=== PATIENT | female | born 1940 | race Caucasian/White ===

== ENCOUNTER 2017-02-23 15:00 | Inpatient (IN) ==
[2017-02-23 15:20] LABS: Basophils % 0.2 %; Eosinophils # 0.1 K/mcL (0.0-0.6); Eosinophils % 0.5 %; Hematocrit 40.4 % (35.3-44.9); Immature Granulocytes % 0.4 % (0-4); Lymphocytes # 2.1 K/mcL (0.6-4.6); Lymphocytes % 21.6 %; Mean Corpuscular HGB Conc 34.7 g/dL (31.6-35.5); Mean Corpuscular Hemoglobin 28.6 pg (28.0-33.3); Mean Corpuscular Volume 82.6 fL (83.0-100.0); Monocytes # 0.7 K/mcL (0.0-1.3); Neutrophils # 6.8 K/mcL (1.6-8.9); Platelet Count 229 K/mcL (140-400); Red Blood Count 4.89 M/mcL (3.82-4.97); Red Cell Distribution Width 12.6 % (11.5-14.5); Segmented Neutrophils % 70.3 %
[2017-02-23] MEDS ORDERED: 0.9 % Sodium Chloride 1,000 ML IVC ONE (15:20)
[2017-02-23 15:33] LABS: Prothrombin Time 10.8 Seconds (9.4-12.1)
[2017-02-23 15:36] LABS: Activated Partial Thrombo Time 25.5 Seconds (26.0-36.0)
[2017-02-23 15:41] LABS: Calcium 10.6 mg/dL (8.6-10.8)
--- NOTE | 2017-02-23 15:51 | Emergency Department Note ---
Disposition Clinical Impression: Neurological deficit present, Hypokalemia, Atrial fibrillation with rapid ventricular response, Acute on chronic renal insufficiency Disposition: Admitted As Inpatient Condition: Critical Referrals: Delifna Middleton CNP [Primary Care Provider] - Forms: ED Satisfaction Letter Time of Disposition: 17:54 Neuro HPI - General Chief Complaint: ED Neuro Symptoms/Deficit Stated Complaint: neuro Time Seen by Provider: 02/23/17 15:12 Source: family Mode of arrival: other (Driven by her brother) Limitations: no limitations Nursing Notes Reviewed: Yes Vital Signs Reviewed: Yes - History of Present Illness HPI Narrative: Mrs. Javed, a 76yo female, since from home by POV for concern of neuro deficit. Specifically, slurring of speech, unilateral facial drooping. Last known normal is 5 days ago per the patient. History is somewhat convoluted, however, my understanding is the patient has been falling for the past 6 weeks. 5 days ago, patient's son picked her up to stay with him for several days because of her falling. Her symptoms were present at that time. They have not progressed or worsened. She has been trying to call her family practice physician and is been unsuccessful getting an appointment. PMH: Hypertension, hyperlipidemia, insulin dependent diabetes. No history of atrial fibrillation. ROS: Positive: Sort of speech, facial symmetry and excellent negative for fever, chills, nausea, vomiting, chest pain, palpitations, dyspnea, diaphoresis, abdominal pain - Related Data Home Medications: Home Medications Medication Instructions Recorded Confirmed Citalopram [CeleXA] 10 mg PO DAILY 12/10/16 02/23/17 Ergocalciferol (VITAMIN D2) 50,000 unit PO SA 12/10/16 02/23/17 [Vitamin D2] Esomeprazole Magnesium [Nexium] 40 mg PO BID PRN 12/10/16 02/23/17 Insulin ASPART [NovoLOG] 0 unit SQ TID 12/10/16 02/23/17 Insulin DETEMIR [Levemir] 40 unit SQ BID 12/10/16 02/23/17 Linagliptin [Tradjenta] 5 mg PO DAILY 12/10/16 02/23/17 Metoprolol [Lopressor] 25 mg PO BID 12/10/16 02/23/17 Acetaminophen [Tylenol Arthritis] 650 mg PO Q8H 02/23/17 02/23/17 Azithromycin [Azithromycin 6-Tab 250 mg PO PER PKG DI 02/23/17 02/23/17 Pack] Chlorpheniramine/Phenyleph/Dm 10 ml PO Q4H PRN 02/23/17 02/23/17 [Gencontuss Liquid] Lisinopril [Zestril] 5 mg PO DAILY 02/23/17 02/23/17 Allergies/Adverse Reactions: Allergies Allergy/AdvReac Type Severity Reaction Status Date / Time acetaminophen Allergy Rash Verified 02/23/17 15:09 [From Darvocet-N] penicillin V Allergy Rash Verified 02/23/17 15:09 propoxyphene Allergy Rash Verified 02/23/17 15:09 [From Darvocet-N] Tetanus Vaccines and Toxoid Allergy See Verified 02/23/17 15:09 Comments tramadol [From Ultram] Allergy Rash Verified 02/23/17 15:09 Past Medical History - Past Medical History Medical history: Reports: diabetes, hyperlipidemia, hypertension, renal disease , other Surgical history: Reports: cholecystectomy Psychiatric history: Reports: no psych history - Social History Smoking Status: Never smoker Alcohol use: Reports: none Drug use: Reports: none Physical Exam Vital Signs Reviewed General: Patient is alert, oriented, and in no acute distress. HEENT: Facial asymmetry. Head is normocephalic and atraumatic. PERRLA, EOMI. mucosa moist. Trachea midline. Cardiovascular: Heart heart rate and irregular rhythm without clicks, rubs, gallops, or murmurs. No JVD. PMI nondisplaced. Pedal edema. Bilateral radial posterior tibial pulses equal and 2/4. Respiratory: Symmetric chest rise with good respiratory effort. Bilateral breath sounds are clear without wheezing, crackles, or rhonchi. Abdomen: Bowel sounds present normoactive x-4 quadrants. Abdomen is soft, nondistended, and nontender. No organomegaly noted. Musculoskeletal: Muscle strength 5/5 and symmetric in right upper and lower extremities. Muscle strength 4/5 and symmetric in left upper and lower extremity. Neuro: Cranial nerves II through XII with deficit - drooping on left side of upper and lower face with no upper or lower left-sided motor movement; sensation intact. Left eyelid ptosis.. Sensation light touch intact. No pronator drift. No limb ataxia. No limb drift in upper or lower extremities. Psych: Patient's affect is appropriate for situation. - General General appearance: alert Course Course Narrative: Patient presents with obvious neuro deficit of left-sided facial swelling and slurring of speech. Last known normal is 4-5 days ago that she is well as I do wonder for TPA. Will not call a code stroke at this time. I assisted in transferring the patient from wheelchair to bed and she has some truncal ataxia , drifting to her left side which is the affected side. Face had gross asymmetry with slurring of speech as described on an HSS and physical exam. She is answering all questions appropriately and rapidly; mentation appears to be clear and crisp. She has no difficulty finding her words but does have difficulty enunciating them. Patient has no history of atrial ablation however she is in A. fib with RVR on presentation. Begin Cardizem bolus and Cardizem drip which lowered her rate to 93. CT head was concerning for possible lacunar infarct; no acute hemorrhage seen. We will hold off on anticoagulation at this time because of that finding. When I spoke with the admitting hospitalist, recommended MR prior to anticoagulation. Patient also has hypokalemia. Cannot perform dysphasia screen in the emergency department because of her facial asymmetry thus cannot replenish by mouth; replenish with slow IV drip. Vital Signs Temperature 0 F L 02/23/17 15:03 Pulse Rate 92 02/23/17 15:03 Respiratory Rate 14 02/23/17 15:03 Blood Pressure 145/79 02/23/17 15:03 O2 Sat by Pulse Oximetry 92 02/23/17 15:03 Temperature 0 F L 02/23/17 15:03 Pulse Rate 72 02/23/17 16:05 Respiratory Rate 18 02/23/17 16:05 Blood Pressure 131/65 02/23/17 16:05 O2 Sat by Pulse Oximetry 95 02/23/17 16:05 Oxygen Delivery Oxygen Delivery Nasal Cannula Neuro Symptoms/Deficit - Medical Records Medical records reviewed: Yes I reviewed the patient's medical records. - Lab Data Lab results reviewed: Yes I reviewed the patient's lab results. Result diagrams: 02/23/17 15:06 02/23/17 15:06 Lab Results 02/23/17 02/23/17 02/23/17 Range/Units 15:06 15:06 15:06 WBC 9.6 (4.3-11.1) K/mcL RBC 4.89 (3.82-4.97) M/mcL Hgb 14.0 (11.5-15.4) g/dL Hct 40.4 (35.3-44.9) % MCV 82.6 L (83.0-100.0) fL MCH 28.6 (28.0-33.3) pg MCHC 34.7 (31.6-35.5) g/dL RDW 12.6 (11.5-14.5) % Plt Count 229 (140-400) K/mcL MPV 9.0 L (9.4-12.4) fL Immature Gran % 0.4 (0-4) % Seg Neutrophils % 70.3 % Lymphocytes % 21.6 % Monocytes % 7.0 % Eosinophils % 0.5 % Basophils % 0.2 % Neutrophils # 6.8 (1.6-8.9) K/mcL Lymphocytes # 2.1 (0.6-4.6) K/mcL Monocytes # 0.7 (0.0-1.3) K/mcL Eosinophils # 0.1 (0.0-0.6) K/mcL Basophils # 0.0 (0.0-0.2) K/mcL PT 10.8 (9.4-12.1) Seconds INR 1.0 APTT 25.5 L (26.0-36.0) Seconds Sodium 131 L (136-145) mEq/L Potassium 3.0 L (3.5-4.5) mEq/L Chloride 89 L (98-109) mEq/L Carbon Dioxide 32 H (19-29) mEq/L BUN 41 H (7-20) mg/dL Creatinine 1.68 H (0.57-1.11) mg/dL Est GFR ( Amer) 36 L (> 60) Est GFR (Non-Af Amer) 30 L (> 60) BUN/Creatinine Ratio 24 (6-26) Glucose 100 H (70-99) mg/dL POC Glucose (58-89) Calculated Osmolality 282 (280-300) Calcium 10.6 (8.6-10.8) mg/dL Magnesium 1.9 (1.6-2.6) mg/dL Total Bilirubin (0.2-1.2) mg/dL Direct Bilirubin (0.0-0.5) mg/dL Indirect Bilirubin (0.0-1.2) mg/dL AST (5-34) Units/L ALT (0-55) Units/L Alkaline Phosphatase (38-126) Units/L Creatine Kinase (29-168) Units/L Troponin I (0-0.03) ng/mL Serum Total Protein (6.0-8.3) g/dL Albumin (3.5-5.0) g/dL Globulin (2.4-3.5) g/dL Albumin/Globulin Ratio (1.1-2.2) Urine Color (Yellow) Urine Clarity (Clear) Urine pH (5.0-8.0) pH Units Ur Specific [place] (1.010-1.025) Urine Protein (Neg-Trace) mg/dL Urine Glucose (UA) (Normal) mg/dL Urine Ketones (Negative) mg/dL Urine Blood (Negative) Urine Nitrite (Negative) Urine Bilirubin (Negative) Urine Urobilinogen (Normal) mg/dL Ur Leukocyte Esterase (Negative) Urine Microscopic RBC (0-3) per hpf Urine Microscopic WBC (0-3) per hpf Ur Squamous Epith Cells (None-Few) per lpf Urine Bacteria (None-Few) per hpf Hyaline Casts (None-Few) per lpf Ur Culture Indicated? (NO) Ethyl Alcohol (0-10) mg/dL Blood Type Antibody Screen 02/23/17 02/23/17 02/23/17 Range/Units 15:06 15:06 15:06 WBC (4.3-11.1) K/mcL RBC (3.82-4.97) M/mcL Hgb (11.5-15.4) g/dL Hct (35.3-44.9) % MCV (83.0-100.0) fL MCH (28.0-33.3) pg MCHC (31.6-35.5) g/dL RDW (11.5-14.5) % Plt Count (140-400) K/mcL MPV (9.4-12.4) fL Immature Gran % (0-4) % Seg Neutrophils % % Lymphocytes % % Monocytes % % Eosinophils % % Basophils % % Neutrophils # (1.6-8.9) K/mcL Lymphocytes # (0.6-4.6) K/mcL Monocytes # (0.0-1.3) K/mcL Eosinophils # (0.0-0.6) K/mcL Basophils # (0.0-0.2) K/mcL PT (9.4-12.1) Seconds INR APTT (26.0-36.0) Seconds Sodium (136-145) mEq/L Potassium (3.5-4.5) mEq/L Chloride (98-109) mEq/L Carbon Dioxide (19-29) mEq/L BUN (7-20) mg/dL Creatinine (0.57-1.11) mg/dL Est GFR ( Amer) (> 60) Est GFR (Non-Af Amer) (> 60) BUN/Creatinine Ratio (6-26) Glucose (70-99) mg/dL POC Glucose 113 H (58-89) Calculated Osmolality (280-300) Calcium (8.6-10.8) mg/dL Magnesium (1.6-2.6) mg/dL Total Bilirubin (0.2-1.2) mg/dL Direct Bilirubin (0.0-0.5) mg/dL Indirect Bilirubin (0.0-1.2) mg/dL AST (5-34) Units/L ALT (0-55) Units/L Alkaline Phosphatase (38-126) Units/L Creatine Kinase (29-168) Units/L Troponin I 0.01 (0-0.03) ng/mL Serum Total Protein (6.0-8.3) g/dL Albumin (3.5-5.0) g/dL Globulin (2.4-3.5) g/dL Albumin/Globulin Ratio (1.1-2.2) Urine Color (Yellow) Urine Clarity (Clear) Urine pH (5.0-8.0) pH Units Ur Specific [place] (1.010-1.025) Urine Protein (Neg-Trace) mg/dL Urine Glucose (UA) (Normal) mg/dL Urine Ketones (Negative) mg/dL Urine Blood (Negative) Urine Nitrite (Negative) Urine Bilirubin (Negative) Urine Urobilinogen (Normal) mg/dL Ur Leukocyte Esterase (Negative) Urine Microscopic RBC (0-3) per hpf Urine Microscopic WBC (0-3) per hpf Ur Squamous Epith Cells (None-Few) per lpf Urine Bacteria (None-Few) per hpf Hyaline Casts (None-Few) per lpf Ur Culture Indicated? (NO) Ethyl Alcohol (0-10) mg/dL Blood Type A POSITIVE Antibody Screen NEGATIVE 02/23/17 02/23/17 02/23/17 Range/Units 15:33 15:33 16:40 WBC (4.3-11.1) K/mcL RBC (3.82-4.97) M/mcL Hgb (11.5-15.4) g/dL Hct (35.3-44.9) % MCV (83.0-100.0) fL MCH (28.0-33.3) pg MCHC (31.6-35.5) g/dL RDW (11.5-14.5) % Plt Count (140-400) K/mcL MPV (9.4-12.4) fL Immature Gran % (0-4) % Seg Neutrophils % % Lymphocytes % % Monocytes % % Eosinophils % % Basophils % % Neutrophils # (1.6-8.9) K/mcL Lymphocytes # (0.6-4.6) K/mcL Monocytes # (0.0-1.3) K/mcL Eosinophils # (0.0-0.6) K/mcL Basophils # (0.0-0.2) K/mcL PT (9.4-12.1) Seconds INR APTT (26.0-36.0) Seconds Sodium (136-145) mEq/L Potassium (3.5-4.5) mEq/L Chloride (98-109) mEq/L Carbon Dioxide (19-29) mEq/L BUN (7-20) mg/dL Creatinine (0.57-1.11) mg/dL Est GFR ( Amer) (> 60) Est GFR (Non-Af Amer) (> 60) BUN/Creatinine Ratio (6-26) Glucose (70-99) mg/dL POC Glucose (58-89) Calculated Osmolality (280-300) Calcium (8.6-10.8) mg/dL Magnesium (1.6-2.6) mg/dL Total Bilirubin 0.4 (0.2-1.2) mg/dL Direct Bilirubin 0.2 (0.0-0.5) mg/dL Indirect Bilirubin 0.2 (0.0-1.2) mg/dL AST 22 (5-34) Units/L ALT 32 (0-55) Units/L Alkaline Phosphatase 61 (38-126) Units/L Creatine Kinase 28 L (29-168) Units/L Troponin I (0-0.03) ng/mL Serum Total Protein 7.5 (6.0-8.3) g/dL Albumin 3.5 (3.5-5.0) g/dL Globulin 4.0 H (2.4-3.5) g/dL Albumin/Globulin Ratio 0.9 L (1.1-2.2) Urine Color Yellow (Yellow) Urine Clarity Clear (Clear) Urine pH 5.5 (5.0-8.0) pH Units Ur Specific [place] 1.028 H (1.010-1.025) Urine Protein >=300 H (Neg-Trace) mg/dL Urine Glucose (UA) Normal (Normal) mg/dL Urine Ketones Negative (Negative) mg/dL Urine Blood Negative (Negative) Urine Nitrite Negative (Negative) Urine Bilirubin Small H (Negative) Urine Urobilinogen Normal (Normal) mg/dL Ur Leukocyte Esterase Negative (Negative) Urine Microscopic RBC 3-5 H (0-3) per hpf Urine Microscopic WBC 3-5 H (0-3) per hpf Ur Squamous Epith Cells Few (None-Few) per lpf Urine Bacteria Moderate H (None-Few) per hpf Hyaline Casts None Seen (None-Few) per lpf Ur Culture Indicated? NO (NO) Ethyl Alcohol < 10 (0-10) mg/dL Blood Type Antibody Screen - Radiology Data Radiology results reviewed: Yes I reviewed the patient's radiology results. - EKG Data EKG attestation: Yes I reviewed and interpreted this EKG. EKG results narrative: EKG dated 23 February 2017 at 15:10 to read as atrial fibrillation with rapid ventricular response; rate of 124. Left axis. LVH. Compared to previous dated 05/12/2011 also showing left axis however sinus rhythm; atrophic relation with RVR is new. EKG #2 dated 23 February 2017 at 16:28 shows atrial fib ablation with a rate of 93. Patient is no longer rapid ventricular response. Left axis deviation and LVH remain from previous EKG today. NIH Stroke Scale - Level of Consciousness LOC: Alert - LOC Questions LOC Questions: Answers both correctly - LOC Commands LOC Commands: Performs both correctly - Best Gaze Best Gaze: Normal - Visual Visual: No visual loss - Facial Palsy Facial Palsy: Complete absence of movement in upper and lower face - Motor Arms Motor Arm-Left: No drift for 10 seconds Motor Arm-Right: No drift for 10 seconds - Motor Legs Motor Leg-Left: No drift for 5 seconds Motor Leg-Right: No drift for 5 seconds - Limb Ataxia Limb Ataxia: Absent of affected limb too weak to perform exam - Sensory Sensory: Mild to moderate loss, "not as sharp" - Best Language Best Language: Mild to moderate aphasia. Examiner can identify picture from response - Dysarthria Dysarthria: Mild, slurs some words - Extinction and Inattention Extinction and Inattention: Normal - NIHSS Total Score NIHSS Total Score: 6 - Pupil Exam Bilateral Pupil Reaction: Brisk, Reactive Pupil Size: 3 TPA Checklist - Source Information Source: Family - Eligibilty for IV tPA 1. LKW equal to or less than 4.5 hours be before treatment: No Critical Care Time Critical Care Time: Yes Total Critical Care Time: 60 Attestation: The high probability of a clinically significant, sudden or life threatening deterioration of the [neuro/CV] system(s) required my full and direct attention , intervention and personal management. The aggregate critical care time was [60 ] minutes. This time is in addition to time spent performing reported procedures but includes the following: [x] Data Review and interpretation [x] Patient assessment and monitoring of vital signs [x] Documentation [x] Medication orders and management Attestation Statement - Attestation Attestation: I examined this patient and my medical decision-making was reviewed with the Resident Physician, Dr. Kamara. I agree with the documented findings, disposition and treatment plan as described except to the extent set forth below. Patient is a 76-year-old white female who is brought to the emergency room today by her brother for slurred speech left sided facial droop and difficulty forming words which patient reports first began approximately 4-5 days ago. The brother who brought her here by vehicle states he has not seen her until she called him today with these changes. Patient resides currently with another family member who has been recently out of town for the past 48 hours. Patient reports possibly 4 days ago she became lightheaded and had fallen in the home and was unable to get up on her own. Patient was assisted by a sister- in-law. Patient reports that she contacted her doctor who recommended she come to the emergency department and she did not call to be transported here until today. Patient denies any headache does complain of some blurred vision, no chest pain or pressure or heaviness, no shortness of breath, no abdominal pain or flank pain, no nausea vomiting or diaphoresis. Patient's states that her left face feels weak and she is having trouble finding the words she wants to say although is able to answer questions appropriately just takes her a long period of time. Patient with some slurred speech. In atrial fibrillation with RVR and a stable blood pressure on arrival. patient arrives tachycardic. EKG shows atrial fibrillation with RVR. Patient has no prior history is far as we are aware. Patient was paced property assessment monitor with continuous pulse ox. Oxygen was applied IV saline well was established and patient was evaluated on arrival to the bedside due to strokelike symptoms. Patient with a 4-5 day reported onset which her brother confirmed on arrival. Due to the length of time of symptoms patient is not a candidate for TPA and a stroke alert was not called. I agree with patient's physical exam findings as documented. Patient was started on Cardizem drip and bolus for rate control of her atrial fibrillation. This did work well to control her rate although she remains in atrial fibrillation at this time. Patient went for a noncontrast head CT which shows an old lacunar infarct but no acute hemorrhage or infarct is appreciated by radiology. Patient's chest x-ray is also unremarkable. Laboratory evaluation shows a mild hypokalemia, IV potassium replacement was initiated in the ED. Patient is hemodynamically stable on Cardizem drip at this time and currently rate controlled. We will hold off on any anticoagulation immediately as I feel patient will require further neurologic evaluation including MR before into quite patient is initiated. Patient will need consults by both neurology as well as cardiology and case was discussed with the hospitalist who accepted patient for admission. Patient will be admitted for further evaluation of neurologic deficit concerning for stroke, atrial fibrillation with RVR, and hypokalemia.
[2017-02-23 16:01] LABS: Albumin 3.5 g/dL (3.5-5.0); Albumin/Globulin Ratio 0.9 (1.1-2.2); Bilirubin,Direct 0.2 mg/dL (0.0-0.5); Bilirubin,Indirect 0.2 mg/dL (0.0-1.2); Bilirubin,Total 0.4 mg/dL (0.2-1.2); Total Protein 7.5 g/dL (6.0-8.3)
[2017-02-23 16:02] LABS: Creatine Kinase 28 Units/L (29-168)
[2017-02-23 16:05] LABS: Ethanol < 10 mg/dL (0-10)
[2017-02-23] MEDS ORDERED: Potassium Effervescent 25 MEQ TABLET.EFF PO ONE (16:05)
[2017-02-23 16:15] LABS: Magnesium 1.9 mg/dL (1.6-2.6)
[2017-02-23] MEDS ORDERED: SODIUM CHLORIDE 0.9% IVPB ONE (16:43)
[2017-02-23] MEDS ORDERED: POTASSIUM PHOSPHATE IVPB ONE (16:43)
[2017-02-23] MEDS ORDERED: Potassium Phosphate 44 MEQ in 0.9 % Sodium Chloride 250 ML IVPB ONE (16:47)
[2017-02-23 16:52] LABS: Bilirubin,Urine Small (Negative); Blood,Urine Negative (Negative); Clarity,Urine Clear (Clear); Color,Urine Yellow (Yellow); Glucose,Urine (UA) Normal (Normal); Ketones,Urine Negative (Negative); Leukocyte Esterase,Urine Negative (Negative); Nitrite,Urine Negative (Negative); PH,Urine 5.5 pH Units (5.0-8.0); Protein,Urine >=300 mg/dL (Neg-Trace); Specific Gravity,Urine 1.028 (1.010-1.025); Urobilinogen,Urine Normal (Normal)
[2017-02-23 17:27] LABS: Bacteria,Urine Moderate per hpf (None-Few); Hyaline Casts,Urine None Seen per lpf (None-Few); Squamous Epithelial Cell,Urine Few per lpf (None-Few)
[2017-02-23] MEDS ORDERED: Naloxone 0.4 MG/ML INJ IVP PRN ×2 (19:54→20:04)
[2017-02-23] MEDS ORDERED: Acetaminophen 325 MG TABLET PO SCH (20:00)
[2017-02-23] MEDS ORDERED: Dextrose Gel 15 GM PO PRN ×2 (20:05)
[2017-02-23] MEDS ORDERED: *HR* Dextrose 50 % in Water (Syg) 50 ML SYRINGE IVP PRN (20:05)
[2017-02-23] MEDS ORDERED: D5% in Water 1,000 ML IVC PRN (20:05)
[2017-02-23] MEDS ORDERED: Insulin LISPRO 300 UNITS/3 ML VIAL SQ SCH (21:00)
[2017-02-23 21:11] LABS: Chol/HDL Ratio 8.3 (0-4.9)
--- NOTE | 2017-02-23 21:23 | Internal Med History&Physical ---
<Ronnie Lujan J - Last Filed: 02/23/17 23:39> Date of Encounter: 02/23/17 Time of Encounter: 21:18 Assessment and Plan (1) CVA (cerebral vascular accident) Current visit: Yes Status: Acute Patient presents to [facility] with left-sided facial droop, slurred speech, left upper and lower extremity weakness and fatigue. CT of the head revealed small acute infarct in the right parietal white matter and left posterior basal ganglia infarct. NIH SS score to be done on floor Every 4 hours neuro checks Every 4 hours vital signs Continuous pulse continuous spo2 monitoring oxygen PRN titrate to maintain spo2 greater than 92% falls precautions; bedrest consult PT/OT/SS, Consult neuro: Day team to call tomorrow Hold BB, and TREY for permissive HTN with parameters to five metoprolol 5mg IVP Q6hrs for SBP greater than 180 mri head with contrast; note made in order that patient has titanium hardware in lt knee Qualifiers: Precerebral and cerebral artery: middle cerebral artery Laterality of affected vessel: bilateral Qualified Code(s): I63.313 - 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 Replace with IV potassium. BMP in the morning, consider replacing potassium based upon results. (3) Atrial fibrillation with rapid ventricular response Current visit: Yes Status: Acute Acute atrial fibrillation noted upon arrival in the ED. EKG from prior admissions revealed normal sinus rhythm. She was given Cardizem IV push in the emergency department which helped decrease her rate to the 90s. Consider starting calcium channel blockers for atrial fibrillation Consult cardiology. Dayshift team to call (4) DVT prophylaxis Current visit: Yes Status: Acute She also course and prolonged immobility patient is a risk for DVT. However, at this time we should consider holding subcutaneous Lovenox or heparin. Will place patient on mechanical DVT prophylaxis and reassess tomorrow after results of MRI Internal Medicine - H&P: HPI Chief complaint: LEFT SIDED FACIAL DROOP, SLURRED SPEECH, LT SIDE WEAKNESS Admitted From: Home Plans for Post Hospital Care: Transfer Inp Rehab Fac History of present illness: Ms. Javed is a 76 year old female with a past medical history of hypertension, hyperlipidemia, and type 2 diabetes. She presents to [facility] with a 5-7 day history of left-sided facial droop, slurred speech, left- sided upper and lower extremity weakness that is ongoing. All information obtained from chart review and patient report. She reports that 5-7 days ago she began noticing at the left side of her face was beginning to droop and she was having difficulty with speech specifically slurred speech. Additionally, she noted that her left upper and lower extremity are weaker in comparison to her right. In this as been getting progressively worse over the last 5-7 days. She denies any numbness or tingling in her face, and upper and lower extremities. Review of systems is negative for chest pain, palpitations, fevers , vision changes, She admits to some intermittent memory loss, slurred speech and dizziness. CT of the head reveals a small lacunar infarct seen in the right parietal white matter and left posterior basal ganglia. Chest x-ray in the ED reveals no acute process. CBC unremarkable. BMP reveals hypokalemia at 3.0. Creatinine is elevated at 1.6 INR is patient's baseline. UA is negative. Troponin -0.01. Additionally, the patient notes some left ear pain, drainage. She is being admitted to [facility] for further workup and evaluation Past Med Surg Social Fam HX - Past Medical History Medical history: diabetes, hyperlipidemia, hypertension, renal disease, other Psychiatric history: no psych history - Past Surgical History Surgical History: cholecystectomy - Social History Smoking Status: Never smoker Alcohol use: none Drug use: none - Family History Mother Race: Family Member Ethnicity: Non- Living Status: Cause of : CVA Hx Family Neurologic Disorders: Yes Brother Race: Family Member Ethnicity: Non- Hx Family Endocrine Disorder: Yes (DM) Internal Medicine - H&P: Meds Citalopram [CeleXA] 10 mg PO DAILY 12/10/16 [History] Ergocalciferol (VITAMIN D2) [Vitamin D2] 50,000 unit PO SA 12/10/16 [History] Esomeprazole Magnesium [Nexium] 40 mg PO BID PRN 12/10/16 [History] Insulin ASPART [NovoLOG] 0 unit SQ TID 12/10/16 [History] Insulin DETEMIR [Levemir] 40 unit SQ BID 12/10/16 [History] Linagliptin [Tradjenta] 5 mg PO DAILY 12/10/16 [History] Metoprolol [Lopressor] 25 mg PO BID 12/10/16 [History] Acetaminophen [Tylenol Arthritis] 650 mg PO Q8H 02/23/17 [History] Azithromycin [Azithromycin 6-Tab Pack] 250 mg PO PER PKG DI 02/23/17 [History] Chlorpheniramine/Phenyleph/Dm [Gencontuss Liquid] 10 ml PO Q4H PRN 02/23/17 [ History] Lisinopril [Zestril] 5 mg PO DAILY 02/23/17 [History] 3 Allergy/AdvReac Type Severity Reaction Status Date / Time acetaminophen Allergy Rash Verified 02/23/17 15:09 [From Darvocet-N] penicillin V Allergy Rash Verified 02/23/17 15:09 propoxyphene Allergy Rash Verified 02/23/17 15:09 [From Darvocet-N] Tetanus Vaccines and Toxoid Allergy See Verified 02/23/17 15:09 Comments tramadol [From Ultram] Allergy Rash Verified 02/23/17 15:09 All Systems PM: A 10-system review of systems was performed and is negative for pertinent findings except as documented above in the HPI. - Constitutional Constitutional: falls (Admits to a false history multiple times throughout the last 6 months. However, she is unable to determine the exact amount of falls), weakness, no chills, no fever(s), no night sweats - EENT Eyes: no blurry vision, no change in vision, no discharge, no loss of peripheral vision, no loss of vision, no pain, no photophobia Ears: ear discharge, ear pain, no decreased hearing, no tinnitus Nose, mouth and throat: no dysphagia, no nasal discharge, no neck pain, no sore throat - Cardiovascular Cardiovascular ROS IM: no chest pain, no diaphoresis, no lightheadedness, no palpitations, no syncope - Respiratory Respiratory: no cough, no dyspnea, no wheezing, no excessive phlegm production - Gastrointestinal Gastrointestinal: no abdominal pain, no diarrhea, no hematemesis, no hematochezia, no melena, no nausea, no vomiting - Genitourinary Genitourinary: no change in urinary stream, no dysuria, no flank pain, no hematuria - Musculoskeletal Musculoskeletal ROS IM: no numbness, no tingling - Integumentary Integumentary IM: no rash, no unusual bruising - Neurological Neurological ROS: abnormal speech (Slurred speech), focal weakness, frequent falls, memory loss, numbness (Mild numbness noted left lower extremity), weakness (Weakness noted bilateral lower extremities), no confusion, no convulsions, no dizziness, no headache(s), no lack of coordination, no loss of vision, no tingling, no tremor(s), no vertigo, no other visual disturbances - Hematologic/Lymphatic Hematologic/Lymphatic: no easy bruising - Constitutional Vitals: Temp Pulse Resp BP Pulse Ox 0 F L 72 18 131/65 95 02/23/17 15:03 02/23/17 16:05 02/23/17 16:05 02/23/17 16:05 02/23/17 16:05 General appearance: Present: cooperative, A&O X 3 (However she does exhibit some short-term memory loss), no acute distress, answers questions appropriately (But has a delayed response) - Head Head exam: Present: atraumatic, normocephalic - Eye Eye exam: Present: EOMI, nystagmus (Minimal Nitrostat noted to left eye with lateral movement), PERRL, conjuntiva pink, sclera anicteric Pupils: Present: PERRL - Neck Neck exam general surgery: Present: supple, trachea midline. Absent: lymphadenopathy - Respiratory Respiratory exam: Present: CTAB. Absent: accessory muscle use, rales, rhonchi, wheezes - Cardiovascular Cardiovascular exam: Present: irregular rhythm (Irregular rhythm noted; patient had atrial fibrillation upon arrival to the emergency department). Absent: diastolic murmur, gallop, rubs, systolic murmur - GI/Abdominal GI/Abdominal exam: Present: normal bowel sounds, soft, no peritoneal signs. Absent: distended, tenderness - Extremities Exam Extremities exam: Present: warm, radial pulses palpable and symmetrical. Absent : calf tenderness, cyanotic, pedal edema - Neurological Exam Neurological exam: Present: CN II-XII intact, oriented X3, facial droop, speech deficit. Absent: abnormal gait, normal gait, no focal deficits, strengths equal and symetr throughout, pronater drift Additional comments: Unable to assess gait as patient has left-sided upper and lower extremity weakness and bilateral lower extremity weakness. Strength equal throughout assessment - Expanded Neurological Exam Neurological exam expanded: Present: protecting the airway. Absent: expressive aphasia Patient oriented to: Present: person, place, time Speech: Present: slurred. Absent: expressive aphasia, receptive aphasia Cranial Nerves: EOM's intact PM: Normal, tongue deviation PM: Normal Cerebellar function: finger to nose: Normal, heel to hong: Abnormal Left Upper motor neuron: Babinski sign: Normal, Escobar neglect: Normal, pronator drift : Normal, sensory extinction: Normal Sensory exam: lower extremity light touch: Abnormal Left, lower extremity pin prick: Abnormal Left, lower extremity temperature: Abnormal Left, UE 2 point discrimination: Abnormal Left, upper extremity light touch: Normal, upper extremity pin prick: Normal, upper extremity temperature: Normal Neuro motor strength exam: LUE: 4, RUE: 5, LLE: 4, RLE: 5 Coma Scale Eye Opening: Spontaneous Coma Scale Motor Response: Obeys Commands Coma Scale Verbal Response: Oriented Coma Scale Total: 15 - Skin Skin exam: Present: dry, intact Internal Med - H&P Results - Labs CBC & Chem 7: 02/23/17 15:06 02/23/17 15:06 Labs: Cardiac Enzymes 02/23/17 Range/Units 20:47 Troponin I 0.01 (0-0.03) ng/mL - EKG Data Prior EKG available for review: yes EKG comments: 02/23/17 21:49 New atrial fibrillation noted - Diagnostic Studies CT scan - head Additional comments: CT of head reveals small lacunar infarct in right parietal white matter and left posterior basal ganglia. Chest x-ray Additional comments: No acute pulmonary process <Betty Monsalve - Last Filed: 02/24/17 02:56> Date of Encounter: 02/24/17 Internal Medicine - H&P: HPI History of present illness: Ms. Javed is a 76 year old female All Systems PM: A 10-system review of systems was performed and is negative for pertinent findings except as documented above in the HPI. - Constitutional Vitals: Temp Pulse Resp BP Pulse Ox 98.1 F 65 16 143/70 100 02/24/17 01:22 02/24/17 02:41 02/24/17 02:41 02/24/17 02:41 02/24/17 02:41 Internal Med - H&P Results - Labs CBC & Chem 7: 02/23/17 15:06 02/23/17 15:06 - Attending Attestation I have independently and personally seen and examined the patient and discussed the plan with nurse practitioner. Patient has presented with left facial droop and left facial paresthesia which what appears to me started almost 6 days ago. In ER she was noted to be in A. fib and she was given 20 mg of IV Cardizem which converted her to sinus rhythm. At this time she is quite is stable and her neurological examination showed no pronator drift and no significant distal weakness in her extremities. We have restarted her on oral Cardizem as well as aspirin and Lipitor considering lipid profile is quite abnormal. Cardiology and neurology are consulted to see if she would need any further anticoagulation. MRI of the brain echocardiogram ultrasound of the carotid is pending. And discussed with nurse practitioner and patient. PTOT eval as well as swallowing eval ordered. I have asked nurse practitioner to consult adoption social worker also considering the fact that patient had a stroke several days before her arrival..
[2017-02-23] MEDS ORDERED: *HR* Metoprolol 5 MG/5 ML VIAL IVP PRN (21:56)
[2017-02-23] MEDS ORDERED: Diltiazem CD (24hr) 120 MG CAPSULE PO STA (23:09)
[2017-02-23] MEDS ORDERED: Aspirin 325 MG TABLET PO STA (23:10)
[2017-02-24] MEDS: Insulin DETEMIR 100 UNIT/ML X5UNITS SQ SCH ×2 (00:32→08:15)
[2017-02-24 05:03] LABS: Basophils % 0.3 %; Eosinophils # 0.1 K/mcL (0.0-0.6); Eosinophils % 0.9 %; Hematocrit 33.7 % (35.3-44.9); Immature Granulocytes % 0.5 % (0-4); Lymphocytes % 22.7 %; Mean Corpuscular HGB Conc 34.1 g/dL (31.6-35.5); Mean Corpuscular Hemoglobin 28.4 pg (28.0-33.3); Mean Corpuscular Volume 83.2 fL (83.0-100.0); Mean Platelet Volume 9.9 fL (9.4-12.4); Monocytes # 0.6 K/mcL (0.0-1.3); Monocytes % 7.2 %; Platelet Count 181 K/mcL (140-400); Red Blood Count 4.05 M/mcL (3.82-4.97); Red Cell Distribution Width 12.6 % (11.5-14.5); Segmented Neutrophils % 68.4 %
[2017-02-24 05:20] LABS: Calcium 9.4 mg/dL (8.6-10.8)
[2017-02-24 05:24] LABS: Hemoglobin 11.5 g/dL (11.5-15.4)
[2017-02-24 05:28] LABS: Potassium 4.1 mEq/L (3.5-4.5)
[2017-02-24] MEDS: Insulin LISPRO 300 UNITS/3 ML VIAL SQ SCH ×3 (08:15→16:39)
--- NOTE | 2017-02-24 09:27 | Cardiology Consult Note ---
Date of Encounter: 02/24/17 Time of Encounter: 09:00 Assessment and Plan (1) Atrial fibrillation with rapid ventricular response Current Visit: Yes Status: Acute Suspected new onset atrial fibrillation with RVR in the setting of acute CVA; chronicity unclear. Cardizem bolus and started on gtt in ED, now SR. Will start cardizem CD 120 mg daily. Telemetry review: avg HR=69, no PAF noted since admission to [facility]. Echocardiogram pending. Hypokalemia noted upon presentation, now corrected. Will obtain TSH. CHA2Ds Vasc= 6 (age, female, HTN, DMII, CVA); given new onset afib, recommend starting Heparin gtt now. Recommend long-term AC, discussed NOACs vs. coumadin with patient, she prefers NOAC. Discussed with Dr. Oglesby, given CKD will randle check Eliquis. Appreciate Neurology recommendations. (2) CVA (cerebral vascular accident) Current Visit: Yes Status: Acute Per Head CT: No hemorrhage, mass or acute infarction. A small lacunar infarction is seen, right frontal parietal white matter and left posterior basal ganglia. MRI brain ordered. Neurology consulted. Plan for discharge to inpatient rehab. Qualifiers: CVA mechanism: unspecified Qualified Code(s): I63.9 - Cerebral infarction, unspecified Discussion w patient/family: The assessment and plan as outlined above was discussed with the patient and/or family members who expressed understanding and agreement. All questions were answered. Thank you for involving us in the care of your patient. Please call with any questions. The patient will be discussed and reviewed with Dr. Oglesby; changes to be made accordingly. History of Present Illness Consult date: 02/24/17 Requesting physician: Ronnie Lujan Consult reason: New onset Afib, CVA Chief complaint: left-sided facial droop History of present illness: Ms. 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 Of note, was treated for ear infection 1+ week ago by PCP, at that time reported fall due to dizziness felt to be secondary to ear infection. Upon arrival to ED, she was found to be in atrial fibrillation with RVR, she was given IV cardizem bolus and started on a gtt--she then converted to NSR. Denies prior cardiac history or studies including echocardiogram, stress test, or LHC. Past Med Surg Social Fam HX - Past Medical History Attestation: Yes The following information was validated with the patient. Source: patient Medical history: CVA, diabetes, hyperlipidemia, hypertension, renal disease Psychiatric history: no psych history - Past Surgical History Surgical History: cholecystectomy, orthopedic, other - Social History Smoking Status: Never smoker Alcohol use: rarely Drug use: none - Family History Mother Race: Family Member Ethnicity: Non- Living Status: Age at : 89 Cause of : CVA Hx Family Endocrine Disorder: Yes (DM) Hx Family Neurologic Disorders: Yes (Dementia) Brother Race: Family Member Ethnicity: Non- Hx Family Endocrine Disorder: Yes (DM) Medications and Allergies Citalopram [CeleXA] 10 mg PO DAILY 12/10/16 [History] Ergocalciferol (VITAMIN D2) [Vitamin D2] 50,000 unit PO SA 12/10/16 [History] Esomeprazole Magnesium [Nexium] 40 mg PO BID PRN 12/10/16 [History] Insulin ASPART [NovoLOG] 0 unit SQ TID 12/10/16 [History] Insulin DETEMIR [Levemir] 40 unit SQ BID 12/10/16 [History] Linagliptin [Tradjenta] 5 mg PO DAILY 12/10/16 [History] Metoprolol [Lopressor] 25 mg PO BID 12/10/16 [History] Acetaminophen [Tylenol Arthritis] 650 mg PO Q8H 02/23/17 [History] Azithromycin [Azithromycin 6-Tab Pack] 250 mg PO PER PKG DI 02/23/17 [History] Chlorpheniramine/Phenyleph/Dm [Gencontuss Liquid] 10 ml PO Q4H PRN 02/23/17 [ History] Lisinopril [Zestril] 5 mg PO DAILY 02/23/17 [History] 3 Allergy/AdvReac Type Severity Reaction Status Date / Time acetaminophen Allergy Rash Verified 02/23/17 15:09 [From Darvocet-N] penicillin V Allergy Rash Verified 02/23/17 15:09 propoxyphene Allergy Rash Verified 02/23/17 15:09 [From Darvocet-N] Tetanus Vaccines and Toxoid Allergy See Verified 02/23/17 15:09 Comments tramadol [From Ultram] Allergy Rash Verified 02/23/17 15:09 All Systems Review: A 10-system review of systems was performed and is negative for pertinent findings except as documented above in the HPI. - Cardiovascular Cardiovascular: as per HPI Physical Examination Vital Signs, Last 4 Hours Temp Pulse Resp BP Pulse Ox 02/24/17 07:33 98.7 F 77 14 128/80 92 02/24/17 05:29 99 F 65 16 141/77 100 General: Conversant HEENT: Other (left-sided facial drooping) Cardiac: Reg Rate and Rhythm, Normal S1 and S2 Lungs: Normal Breath Sounds Neuro: Alert and responsive, Other (mild left-sided weakness) Abdomen: Soft Skin: No rashes noted on visualized skin Musculoskeletal: No Chest Wall Tenderness Extremities: No Edema, Normal Pulses Results 02/24/17 04:52 02/24/17 04:52 Lab Results 02/24/17 02/24/17 02/24/17 04:52 04:52 04:52 WBC 8.8 Hgb 11.5 D Hct 33.7 L Plt Count 181 Sodium 133 L Potassium 4.1 D Chloride 100 Carbon Dioxide 24 BUN 36 H Creatinine 1.44 H Glucose 95 Calcium 9.4 Troponin I 0.01 - Imaging and Cardiology Echo: pending Other Results: 12 hour tele: avg HR=69 SR. - EKG Interpretation EKG results cardiology: personally reviewed Consult Discharge Plan - Plan Referrals: Delfina Middleton CNP [Primary Care Provider] - 03/04/17 1:30 pm
[2017-02-24] MEDS ORDERED: *HR* Heparin 5,000 UNIT/ML VIAL IVP PRN ×2 (10:10)
[2017-02-24] MEDS ORDERED: Heparin 25,000 UNIT/500 ML D5W 25,000 UNIT/500 ML MLS IVC SCH (10:15)
[2017-02-24] MEDS ORDERED: Diltiazem CD (24hr) 120 MG CAPSULE PO SCH (10:15)
[2017-02-24 11:50] LABS: INR 1.1; Prothrombin Time 11.3 Seconds (9.4-12.1)
[2017-02-24 11:52] LABS: Hematocrit 34.9 % (35.3-44.9); Hemoglobin 11.7 g/dL (11.5-15.4); Mean Corpuscular HGB Conc 33.5 g/dL (31.6-35.5); Mean Corpuscular Hemoglobin 28.4 pg (28.0-33.3); Mean Corpuscular Volume 84.7 fL (83.0-100.0); Mean Platelet Volume 9.4 fL (9.4-12.4); Platelet Count 202 K/mcL (140-400); Red Blood Count 4.12 M/mcL (3.82-4.97); Red Cell Distribution Width 12.7 % (11.5-14.5)
[2017-02-24 11:54] LABS: Activated Partial Thrombo Time 23.7 Seconds (26.0-36.0)
[2017-02-24] MEDS ORDERED: Artificial Tears SOLN 15 ML BOTTLE LEFT EYE PRN (12:06)
[2017-02-24] MEDS ORDERED: Cefepime HCl 2,000 MG in D5% in Water (Mini-Bag+) 100 ML IVPB SCH (13:00)
--- NOTE | 2017-02-24 13:09 | Internal Med Progress Note ---
<Toy Garduno - Last Filed: 02/24/17 13:00> Date of Encounter: 02/24/17 Time of Encounter: 13:00 - Assessment and plan (1) Otitis externa Current Visit: Yes Status: Acute Assessment and plan: Patient has erythema with purulent discharge. There is some surrounding erythema and swelling of the face. 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 Given the patient's underlying diabetes and concern for a pseudomonal infection which started IV cefepime renally dosed and instituted Ciprodex eardrops. We will obtain CT the temporal bones and consult ENT. 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 Given that both the upper and lower facial muscles are involved I think this is less likely related to an acute CVA. My concern that this is related to infection as discussed above. CT of the head shows small lacunar infarct however it is unclear if this is acute. MRI of the head is pending. We will also obtain a CT of the temporal bones. Of note the patient has difficulty completely closing her left eye, therefore we have ordered eyedrops to prevent drying of her eyes and corneal injury. (3) Type 2 diabetes mellitus Current Visit: Yes Status: Acute Assessment and plan: Sugars been well controlled. Continue current insulin regimen. Qualifiers: Diabetes mellitus complication status: with kidney complications Diabetes mellitus complication detail: with chronic kidney disease Diabetes mellitus long-term insulin use: with long-term use Chronic kidney disease stage: stage 3 (moderate) Qualified Code(s): E11.22 - Type 2 diabetes mellitus with diabetic chronic kidney disease; N18.3 - Chronic kidney disease, stage 3 ( moderate); Z79.4 - care home (current) use of insulin (4) Atrial fibrillation with rapid ventricular response Current Visit: Yes Status: Acute Assessment and plan: Patient presented with atrial fibrillation with rate in the 120s. Patient was placed on Cardizem drip and her rate responded appropriately. She has been transitioned to by mouth Cardizem. Patient was placed on heparin drip for anticoagulation given that her [id number] is 6. We will transition to eliquis once the patient is been evaluated by ENT. Echocardiogram normal. Patient seen by cardiology and we appreciate the recommendations. (5) Acute on chronic renal insufficiency Current Visit: Yes Status: Acute Assessment and plan: Stage III CKD. Patient appears to be at baseline kidney function. Good urine output. Continue monitor. - Subjective Interval history: Patient seen and examined at bedside. Patient states that she feels okay today. She does have some pain in her left ear particularly when she swallows. She is having difficulty blinking closing her left eye. She reports drainage out of the left ear. She denies fever, chills. - Constitutional Vitals: Temp Pulse Resp BP Pulse Ox 97.7 F 81 14 146/86 93 02/24/17 11:56 02/24/17 11:56 02/24/17 11:56 02/24/17 11:56 02/24/17 11:56 General appearance: Present: cooperative, A&O X 3, no acute distress, answers questions appropriately (But has a delayed response) - ENT Additional comments: Right external ear, ear canal, TM normal. Left external ear is erythematous with some pustular drainage and a small area of ulceration on the external ear. The external ears tender with movement. The left ear canal is erythematous. View of the TM was obscured by pus. - Respiratory Respiratory exam: Present: CTAB. Absent: rales, rhonchi, wheezes - Cardiovascular Cardiovascular exam: Present: RRR. Absent: gallop, rubs, systolic murmur - Extremities Exam Extremities exam: Present: warm. Absent: pedal edema, tenderness - Neurological Exam Neurological exam: Present: facial droop Additional comments: Left-sided upper and lower facial paralysis. Otherwise no focal deficits, strength is 5 out of 5 in the extremities bilaterally. Sensation is intact. Internal Medicine: Result - Labs CBC & Chem 7: 02/24/17 11:20 02/24/17 04:52 Labs: Short CBC 02/24/17 02/24/17 Range/Units 04:52 11:20 WBC 8.8 7.9 (4.3-11.1) K/mcL Hgb 11.5 D 11.7 (11.5-15.4) g/dL Hct 33.7 L 34.9 L (35.3-44.9) % Plt Count 181 202 (140-400) K/mcL Neutrophils # 6.0 (1.6-8.9) K/mcL BMP 02/24/17 04:52 Sodium 133 L Potassium 4.1 D Chloride 100 Carbon Dioxide 24 BUN 36 H Creatinine 1.44 H Glucose 95 Calcium 9.4 Cardiac Enzymes 02/24/17 Range/Units 04:52 Troponin I 0.01 (0-0.03) ng/mL - ABG Interpretation ABG results: PT/INR, D-dimer PT 11.3 Seconds (9.4-12.1) 02/24/17 11:20 Consult Discharge Plan - Plan Instructions: Atrial Fibrillation (DC), Otitis Externa (DC), Otitis Externa ( GEN), Haji Palsy (DC), Haji Palsy (GEN), Diabetes Mellitus Type 2 in Adults (DC) Referrals: Delfina Middleton RADAR SCIENTIST [Primary Care Provider] - 03/04/17 1:30 pm <Bayron Jason - Last Filed: 02/24/17 16:43> Date of Encounter: 02/24/17 - Assessment and plan (1) Malignant otitis externa of left ear Current Visit: Yes Status: Acute Qualifiers: Chronicity: acute Qualified Code(s): H60.22 - Malignant otitis externa, left ear (2) Type 2 diabetes mellitus Current Visit: Yes Status: Chronic Qualifiers: Diabetes mellitus complication status: with kidney complications Diabetes mellitus complication detail: with chronic kidney disease Diabetes mellitus long-term insulin use: with terminal carman use Chronic kidney disease stage: stage 3 (moderate) Qualified Code(s): E11.22 - Type 2 diabetes mellitus with diabetic chronic kidney disease; N18.3 - Chronic kidney disease, stage 3 ( moderate); Z79.4 - care home (current) use of insulin (3) CVA (cerebral vascular accident) Current Visit: Yes Status: Suspected Qualifiers: CVA mechanism: thrombosis Precerebral and cerebral artery: anterior cerebral artery Laterality of affected vessel: right Qualified Code(s): 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 (4) Hypokalemia Current Visit: Yes Status: Acute (5) Paroxysmal atrial fibrillation Current Visit: Yes Status: Chronic - Constitutional Vitals: Temp Pulse Resp BP Pulse Ox 98.0 F 92 13 150/86 94 02/24/17 16:28 02/24/17 16:28 02/24/17 16:28 02/24/17 16:28 02/24/17 16:28 Internal Medicine: Result - Labs CBC & Chem 7: 02/24/17 11:20 02/24/17 04:52 Labs: Short CBC 02/24/17 02/24/17 Range/Units 04:52 11:20 WBC 8.8 7.9 (4.3-11.1) K/mcL Hgb 11.5 D 11.7 (11.5-15.4) g/dL Hct 33.7 L 34.9 L (35.3-44.9) % Plt Count 181 202 (140-400) K/mcL Neutrophils # 6.0 (1.6-8.9) K/mcL BMP 02/24/17 04:52 Sodium 133 L Potassium 4.1 D Chloride 100 Carbon Dioxide 24 BUN 36 H Creatinine 1.44 H Glucose 95 Calcium 9.4 Cardiac Enzymes 02/24/17 Range/Units 04:52 Troponin I 0.01 (0-0.03) ng/mL - ABG Interpretation ABG results: PT/INR, D-dimer PT 11.3 Seconds (9.4-12.1) 02/24/17 11:20 - Impressions Impressions Brain MRI 02/24/17 12:00 IMPRESSION: 1. There is a focal chronic infarct noted in the deep white matter of the posterior right frontal lobe, with acute/early subacute gerald-infarct ischemia. This could be contributing to the patient's left-sided neurologic deficits. 2. There is cerebral and cerebellar parenchymal volume loss with mild-moderate chronic microvascular white matter ischemic disease. 3. Bilateral mastoid effusions. D/ / 02/24/2017 14:44:03 Johnny Schneider MD / earnold Interpreting Provider: Johnny Schneider MD - Attending Attestation Please see discharge summary of today's date.
--- NOTE | 2017-02-24 13:11 | ENT - Consult Note ---
<Rigo Mcpherson - Last Filed: 02/24/17 15:42> Date of Encounter: 02/24/17 Time of Encounter: 13:11 Assessment and Plan (1) Malignant otitis externa of left ear Status: Acute Although CT scan did not demonstrate obvious abnormalities of the left canal or mastoiditis, there is obvious drainage with possible necrosis of the outer ear Cultures have been collected of the drainage; awaiting results She has already received IV Cefepime which we recommend changing to IV Cipro; Continue with Cipro/Dex otic drops Will start patient on IV Steroids with Decadron 80 mg q8hr Awaiting MRI of head for further evaluation; she may need follow up temporal bone scan to rule out osteomyelitis Spoke to patient and family at length about options and they have agreed to transfer her to [place] so she can receive proper infectious disease care are our physician is currently unavailable; in addition she may seek an ENT who specializes in ear procedures if surgery is indicated Given that she has newly diagnosed AFib; recommend on continuing on heparin ggt in case she requires surgical intervention Qualifiers: Chronicity: acute Qualified Code(s): H60.22 - Malignant otitis externa, left ear (2) Facial paralysis on left side Status: Acute Given that she has involvement of her forehead, she may have Haji's Palsy Will further evaluate with MRI; results pending She has been started on IV Decadron as above (3) Type 2 diabetes mellitus Status: Chronic Sliding scale/basal insulin and accuchecks per primary team Qualifiers: Diabetes mellitus complication status: with kidney complications Diabetes mellitus complication detail: with chronic kidney disease Diabetes mellitus termination clerk insulin use: with termination clerk use Chronic kidney disease stage: stage 3 (moderate) Qualified Code(s): E11.22 - Type 2 diabetes mellitus with diabetic chronic kidney disease; N18.3 - Chronic kidney disease, stage 3 ( moderate); Z79.4 - [facility] (current) use of insulin History of Present Illness Consult date: 02/24/17 Reason for ENT Consult: other (otitis externa) Requesting physician: Toy Garduno History of present illness: Pt is a 76 female with PMH with HTN, HLD, CKD, DM II who presents with left sided facial droop, slurred speech, and left lower/upper extremity weakness. She states that the symptoms first began about a week ago with left facial droop and she also noticed slurred speech during that time. Family is at bedside and states that she has been more confused and had memory loss recently. A week ago, she had bilateral redness and swelling behind her ears and went to her PCP's office where she was diagnosed with acute sinusitis and was given 5 days of Zithromax. Her right ear improved but her left ear worsened and she eventually had purulent red/yellow drainage. She reports pain behind her left ear but it did not radiate. Pt denies any chest pain, fever, decreasing hearing, or visual disturbances. Past Med Surg Social Fam HX - Past Medical History Medical history: CVA, diabetes, hyperlipidemia, hypertension, renal disease Psychiatric history: no psych history - Past Surgical History Surgical History: cholecystectomy, orthopedic, other - Social History Smoking Status: Never smoker Alcohol use: rarely Drug use: none - Family History Mother Race: Family Member Ethnicity: Non- Living Status: Age at : 91 Cause of : CVA Hx Family Endocrine Disorder: Yes (DM) Hx Family Neurologic Disorders: Yes (Dementia) Brother Race: Family Member Ethnicity: Non- Hx Family Endocrine Disorder: Yes (DM) Medications and Allergies Citalopram [CeleXA] 10 mg PO DAILY 12/10/16 [History] Ergocalciferol (VITAMIN D2) [Vitamin D2] 50,000 unit PO SA 12/10/16 [History] Esomeprazole Magnesium [Nexium] 40 mg PO BID PRN 12/10/16 [History] Insulin ASPART [NovoLOG] 0 unit SQ TID 12/10/16 [History] Insulin DETEMIR [Levemir] 40 unit SQ BID 12/10/16 [History] Linagliptin [Tradjenta] 5 mg PO DAILY 12/10/16 [History] Metoprolol [Lopressor] 25 mg PO BID 12/10/16 [History] Acetaminophen [Tylenol Arthritis] 650 mg PO Q8H 02/23/17 [History] Chlorpheniramine/Phenyleph/Dm [Gencontuss Liquid] 10 ml PO Q4H PRN 02/23/17 [ History] Lisinopril [Zestril] 5 mg PO DAILY 02/23/17 [History] Artificial Tears SOLN [Akwa Tears] 1 drop LEFT EYE Q4H PRN bottle 02/24/17 [Rx] Artificial Tears SOLN [Akwa Tears] 1 drop LEFT EYE QID bottle 02/24/17 [Rx] Atorvastatin [Lipitor] 40 mg PO HS tab 02/24/17 [Rx] Dexamethasone [Decadron] 20 mg IVP Q8HR vial 02/24/17 [Rx] Diltiazem CD (24hr) [Cardizem CD] 120 mg PO DAILY 02/24/17 [Rx] 3 Allergy/AdvReac Type Severity Reaction Status Date / Time acetaminophen Allergy Rash Verified 02/23/17 15:09 [From Darvocet-N] penicillin V Allergy Rash Verified 02/23/17 15:09 propoxyphene Allergy Rash Verified 02/23/17 15:09 [From Darvocet-N] Tetanus Vaccines and Toxoid Allergy See Verified 02/23/17 15:09 Comments tramadol [From Ultram] Allergy Rash Verified 02/23/17 15:09 ENT - ROS - Constitutional Constitutional ROS: no daytime sleepiness, no fever(s), no headache(s), no lethargy, no snoring, no stops breathing during sleep - EENT Ears: left: ear discharge, earache Nose, mouth and throat: no abnormal hearing, no bleeding gums, no change in voice, no dental pain, no disequilibrium, no dizziness, no dry mouth, no dysphagia, no epistaxis, no facial pain, no halitosis, no headache(s), no hoarseness, no lip swelling, no mouth lesions, no mouth pain, no nasal congestion, no nasal discharge, no nasal obstruction, no nasal trauma, no neck mass, no neck pain, no nose pain, no odynophagia, no post-nasal drip, no sinus pain, no sinus pressure, no sore throat, no throat swelling, no tongue swelling , no vertigo - Cardiovascular Cardiovascular ROS IM: no chest pain, no chest pain at rest, no dyspnea, no edema, no lightheadedness, no syncope - Respiratory dyspnea, no hemoptysis, no dyspnea on exertion, no wheezing, no stridor, no pain on inspiration, no chest congestion, no change in phlegm color, no pain with cough - Gastrointestinal Gastrointestinal: nausea, no coffee ground emesis, no constipation, no diarrhea , no dyspepsia, no dysphagia, no heartburn, no odynophagia, no vomiting - Genitourinary Genitourinary ROS: no difficulty urinating, no dysuria, no urinary frequency, no urinary incontinence, no urinary urgency - Musculoskeletal Musculoskeletal ROS: as per HPI, muscle weakness, no abnormal gait, no myalgias , no neck pain, no numbness, no stiffness, no tingling - Integumentary Integumentary: no acne, no bleeding lesions, no change in hair, no change in nails, no change in pigmentation, no changing lesions, no erythema, no furuncle , no lesions, no new lesions, no non-healing lesions, no pruritus, no rash, no skin ulcer, no sores - Neurological Neurological ROS: weakness, no abnormal gait, no abnormal hearing, no abnormal speech, no disequilibrium, no dizziness, no focal weakness, no frequent falls, no headache(s), no lack of coordination, no numbness, no paresthesias, no restless legs, no syncope, no tingling, no tremor(s), no vertigo - Psychiatric Psychiatric general: no abnormal sleep pattern, no anxiety, no auditory hallucinations - Endocrine Endocrine: no cold intolerance, no deeping of the voice, no excessive sweating, no fatigue, no flushing, no heat intolerance, no palpitations, no polydipsia, no polyphagia, no polyuria - Hematologic/Lymphatic no easy bleeding, no easy bruising, no lymphadenopathy - Allergic/Immunologic no tongue swelling, no throat swelling, no itchy eyes, no seasonal rhinorrhea, no uticaria, no wheezing, no GI upset with certain foods, no lip swelling ENT Exam Initial Vital Signs Temp Pulse Resp BP Pulse Ox 0 F L 92 14 145/79 92 02/23/17 15:03 02/23/17 15:03 02/23/17 15:03 02/23/17 15:03 02/23/17 15:03 - General physical appearance well developed, well nourished, no distress, obese. negative: moderate distress , severe distress, moderate pain, severe pain, cachectic - Eyes PERRL, normal ocular movement - ENT no congestion, Other (erythematous appearance of left outer ear with small area of necrosis; granulation tissue noted in bony-cartilaginous junction with purulent drainage; mild excoriation on right ear canal). negative: CN 2-12 grossly intact (unable to raise eyebrow, smile, on left; normal tongue deviation ) - Neck no masses, no bruits, trachea midline, no lymphadectomy, no venous distension - Respiratory normal expansion, normal respiratory effort, clear to percussion, clear to auscultation - Abdomen Abdomen: soft, non tender, bowel sounds, no tender, no surgical scars - Integumentary no rash, no growths, no abnormal pigmentation - Neurologic normal coordination, normal sensation, memory loss, no CN 2-12 grossly intact - Musculoskeletal normal gait, normal posture - Psychiatric oriented to time, oriented to person, oriented to place, speech is normal, memory intact Exam Initial Vital Signs Temp Pulse Resp BP Pulse Ox 0 F L 92 14 145/79 92 02/23/17 15:03 02/23/17 15:03 02/23/17 15:03 02/23/17 15:03 02/23/17 15:03 Results - Labs 02/24/17 11:20 02/24/17 04:52 Abnormal lab results Hct 34.9 % (35.3-44.9) L 02/24/17 11:20 APTT 23.7 Seconds (26.0-36.0) L 02/24/17 11:20 Sodium 133 mEq/L (136-145) L 02/24/17 04:52 BUN 36 mg/dL (7-20) H 02/24/17 04:52 Creatinine 1.44 mg/dL (0.57-1.11) H 02/24/17 04:52 Est GFR ( Amer) 43 (> 60) L 02/24/17 04:52 Est GFR (Non-Af Amer) 36 (> 60) L 02/24/17 04:52 POC Glucose 113 (58-89) H 02/23/17 15:06 Creatine Kinase 28 Units/L (29-168) L 02/23/17 15:33 Globulin 4.0 g/dL (2.4-3.5) H 02/23/17 15:33 Albumin/Globulin Ratio 0.9 (1.1-2.2) L 02/23/17 15:33 Triglycerides 245 mg/dL (< 150) H 02/23/17 20:47 Cholesterol 266 mg/dL (< 200) H 02/23/17 20:47 LDL Cholesterol, Calc 185 mg/dL (0-99) H 02/23/17 20:47 VLDL Cholesterol, Calc 49 mg/dL (< 31) H 02/23/17 20:47 HDL Cholesterol 32 mg/dL (40-59) L 02/23/17 20:47 Cholesterol/HDL Ratio 8.3 (0-4.9) H 02/23/17 20:47 Ur Specific [place] 1.028 (1.010-1.025) H 02/23/17 16:40 Urine Protein >=300 mg/dL (Neg-Trace) H 02/23/17 16:40 Urine Bilirubin Small (Negative) H 02/23/17 16:40 Urine Microscopic RBC 3-5 per hpf (0-3) H 02/23/17 16:40 Urine Microscopic WBC 3-5 per hpf (0-3) H 02/23/17 16:40 Urine Bacteria Moderate per hpf (None-Few) H 02/23/17 16:40 Diabetes panel 02/24/17 Range/Units 04:52 Sodium 133 L (136-145) mEq/L Potassium 4.1 D (3.5-4.5) mEq/L Chloride 100 (98-109) mEq/L Carbon Dioxide 24 (19-29) mEq/L BUN 36 H (7-20) mg/dL Creatinine 1.44 H (0.57-1.11) mg/dL Glucose 95 (70-99) mg/dL Calcium 9.4 (8.6-10.8) mg/dL Thyroid panel 02/24/17 Range/Units 11:20 TSH 1.081 (0.350-4.840) mcIU/mL Calcium panel 02/24/17 Range/Units 04:52 Calcium 9.4 (8.6-10.8) mg/dL Pituitary panel 02/24/17 02/24/17 Range/Units 04:52 11:20 Sodium 133 L (136-145) mEq/L Potassium 4.1 D (3.5-4.5) mEq/L Chloride 100 (98-109) mEq/L Carbon Dioxide 24 (19-29) mEq/L BUN 36 H (7-20) mg/dL Creatinine 1.44 H (0.57-1.11) mg/dL Glucose 95 (70-99) mg/dL Calcium 9.4 (8.6-10.8) mg/dL TSH 1.081 (0.350-4.840) mcIU/mL Adrenal panel 02/24/17 Range/Units 04:52 Sodium 133 L (136-145) mEq/L Potassium 4.1 D (3.5-4.5) mEq/L Chloride 100 (98-109) mEq/L Carbon Dioxide 24 (19-29) mEq/L BUN 36 H (7-20) mg/dL Creatinine 1.44 H (0.57-1.11) mg/dL Glucose 95 (70-99) mg/dL Calcium 9.4 (8.6-10.8) mg/dL All other labs normal. Consult Discharge Plan - Plan Instructions: Atrial Fibrillation (DC), Otitis Externa (DC), Otitis Externa ( GEN), Haji Palsy (DC), Haji Palsy (GEN), Diabetes Mellitus Type 2 in Adults (DC) Referrals: Delfina Middleton CNP [Primary Care Provider] - 03/04/17 1:30 pm <Linda Cool - Last Filed: 02/25/17 14:49> Date of Encounter: 02/25/17 Assessment and Plan (1) Facial paralysis on left side Status: Acute Patient appears to have a house Brackmann V the facial nerve function. Patient with some slight movement of the mouth and inability to close the eye and asymmetry at rest. After evaluating the left ear I believe the inflammation of the ear canal is causing this paralysis. Agree with IV ciprofloxacin and second culture within the ear canal was taken at the bedside during my microscopic procedure the left ear. Recommend culture and sensitivity. Would recommend further evaluation by infectious diseases patient with induration and ulcerative lesion on the pinna on the left. (2) Malignant otitis externa of left ear Status: Acute Thorough cleaning and aural toilet was performed on the left ear with the microscope. Please see procedure note. Patient with significant swelling at the bony cartilaginous junction of the left ear canal. Qualifiers: Chronicity: acute Qualified Code(s): H60.22 - Malignant otitis externa, left ear ENT Exam Initial Vital Signs Temp Pulse Resp BP Pulse Ox 0 F L 92 14 145/79 92 02/23/17 15:03 02/23/17 15:03 02/23/17 15:03 02/23/17 15:03 02/23/17 15:03 Exam Initial Vital Signs Temp Pulse Resp BP Pulse Ox 0 F L 92 14 145/79 92 02/23/17 15:03 02/23/17 15:03 02/23/17 15:03 02/23/17 15:03 02/23/17 15:03 Results - Labs 02/24/17 11:20 02/24/17 04:52 Abnormal lab results Hct 34.9 % (35.3-44.9) L 02/24/17 11:20 APTT 109.3 Seconds (26.0-36.0) H D 02/24/17 18:41 Sodium 133 mEq/L (136-145) L 02/24/17 04:52 BUN 36 mg/dL (7-20) H 02/24/17 04:52 Creatinine 1.44 mg/dL (0.57-1.11) H 02/24/17 04:52 Est GFR ( Amer) 43 (> 60) L 02/24/17 04:52 Est GFR (Non-Af Amer) 36 (> 60) L 02/24/17 04:52 POC Glucose 129 (58-89) H 02/24/17 16:32 Creatine Kinase 28 Units/L (29-168) L 02/23/17 15:33 Globulin 4.0 g/dL (2.4-3.5) H 02/23/17 15:33 Albumin/Globulin Ratio 0.9 (1.1-2.2) L 02/23/17 15:33 Triglycerides 245 mg/dL (< 150) H 02/23/17 20:47 Cholesterol 266 mg/dL (< 200) H 02/23/17 20:47 LDL Cholesterol, Calc 185 mg/dL (0-99) H 02/23/17 20:47 VLDL Cholesterol, Calc 49 mg/dL (< 31) H 02/23/17 20:47 HDL Cholesterol 32 mg/dL (40-59) L 02/23/17 20:47 Cholesterol/HDL Ratio 8.3 (0-4.9) H 02/23/17 20:47 Ur Specific [place] 1.028 (1.010-1.025) H 02/23/17 16:40 Urine Protein >=300 mg/dL (Neg-Trace) H 02/23/17 16:40 Urine Bilirubin Small (Negative) H 02/23/17 16:40 Urine Microscopic RBC 3-5 per hpf (0-3) H 02/23/17 16:40 Urine Microscopic WBC 3-5 per hpf (0-3) H 02/23/17 16:40 Urine Bacteria Moderate per hpf (None-Few) H 02/23/17 16:40 All other labs normal.
--- NOTE | 2017-02-24 13:34 | Event Note ---
Date of Encounter: 02/24/17 Time of Encounter: 13:10 - Cardiology Event Note Randle check for Eliquis 5 mg BID $156.88/month. Discussed with patient and family. Would prefer to avoid coumadin due to transportation issues for INR draws and distance from coumadin clinic. They agree with starting Eliquis given cost. 30-day savings card provided--30 day free supply. Will pursue patient cost assistance program as outpatient via Cardiology office to see if randle can be reduced. Recommend stopping heparin gtt 1 hour prior to starting Eliquis. Discussed with Dr. Garduno--primary service will start Eliquis after ENT evaluation as surgery may be indicated. TTE results reviewed, EF preserved with normal wall motion, no significant valvular dysfunction. Cardiology will sign-off, will coordinate appt in the outpatient setting. Discussed with Dr. Oglesby who agrees with plan as stated above.
--- NOTE | 2017-02-24 15:00 | Electrocardiograph Report ---
[address] [place], [place] [address] Test Date: 2017-02-23 Pat Name: Doris Javed Department: 104 Room: 2NE35 Gender: F Retirement Actuary: : 1940 Requested By: Shannon Squires Order Number: [id number] Reading MD: Stefany Serrano Measurements Intervals [place] Rate: 124 P: NE: 0 QRS: -38 QRSD: 96 T: 102 QT: 315 QTc: 389 Interpretive Statements ATRIAL FIBRILLATION WITH RAPID VENTRICULAR RESPONSE MARKED LEFT AXIS DEVIATION VOLTAGE CRITERIA FOR LVH POSSIBLE ANTERIOR MYOCARDIAL INFARCTION, PROBABLY OLD Electronically Signed On 02-24-2017 14:58:55 EDT by Stefany Serrano
--- NOTE | 2017-02-24 15:01 | Electrocardiograph Report ---
[place] [address] Test Date: 2017-02-23 Pat Name: Doris Javed Department: 104 Room: 2N5 Gender: Travel Attendants: : 1940 Requested By: Shannon Squires Order Number: [id number] Reading MD: Stefany Serrano Measurements Intervals [place] Rate: 93 P: CA: 0 QRS: -41 QRSD: 91 T: 83 QT: 348 QTc: 399 Interpretive Statements ATRIAL FIBRILLATION MARKED LEFT AXIS DEVIATION VOLTAGE CRITERIA FOR LVH POSSIBLE ANTERIOR MYOCARDIAL INFARCTION, PROBABLY OLD Electronically Signed On 02-24-2017 15:00:08 EDT by Stefany Serrano
--- NOTE | 2017-02-24 15:43 | ENT - Procedure Note ---
Date of procedure: 02/24/17 Pre-op diagnosis: Malignant Otitis externa Post-op diagnosis: same Procedure: Procedure: Binocular Microscopy of left Ear Blood loss: 0 Specimens: Aerobic culture left external auditory canal Indications and consent: Patient is a 76-year-old female that was present of the hospital with a left facial paralysis. Patient diagnosed with bilateral ear infections by her primary care and was started on a Z-Arvind as an outpatient. Patient finished this and although her right ear improved her left ear continued to have pain. Patient subsequently developed a weakness in the left face. Patient also developed drainage from the left ear for approximately 1 week. Patient does have a history of diabetes. Verbal consent was obtained. Procedure in detail: Microscope was brought to the bedside and patient's room. With patient supine on the bed microscope was brought in to visualize the left ear. Binocular microscopy was performed to the left ear. External pinnae did appear to have induration and erythema with ulcerated lesion at the inferior archie. Purulent drainage was settling within the ian bowl. This was suctioned with the use of a 7 suction. Appropriate size otic speculum was then placed within the ear canal. Thick purulent drainage was suctioned from the ear canal using the suction. Suction was then downgraded to a size 5 [place] area continued suction of debris and purulent was performed of the left EAC. There is significant induration and erythema at the bony cartilaginous junction. Tympanic membrane was visualized and was indurated and thickened. Middle ear appeared well aerated but was difficult to assess secondary to induration of both the tympanic membrane and the ear canal. Otic speculum was removed. Patient tolerated procedure well. Anesthesia: none Surgeon: Linda Cool Estimated blood loss (cc): 0 Condition: stable
--- NOTE | 2017-02-24 15:52 | Discharge Summary ---
<Toy Garduno - Last Filed: 02/24/17 15:48> Date of Encounter: 02/24/17 Time of Encounter: 15:48 - Discharge Diagnosis (1) Otitis externa Priority: Primary Status: Acute Qualifiers: Otitis externa type: unspecified type Chronicity: acute Laterality: left Qualified Code(s): H60.502 - Unspecified acute noninfective otitis externa, left ear (2) Haji's palsy Priority: Primary Status: Acute (3) Type 2 diabetes mellitus Priority: Secondary Status: Chronic Qualifiers: Diabetes mellitus complication status: with kidney complications Diabetes mellitus complication detail: with chronic kidney disease Diabetes mellitus buttermaker continuous churn insulin use: with buttermaker continuous churn use Chronic kidney disease stage: stage 3 (moderate) Qualified Code(s): E11.22 - Type 2 diabetes mellitus with diabetic chronic kidney disease; N18.3 - Chronic kidney disease, stage 3 ( moderate); Z79.4 - exterminator helper (current) use of insulin (4) Atrial fibrillation with rapid ventricular response Priority: Primary Status: Acute (5) Acute on chronic renal insufficiency Priority: Secondary Status: Resolved (6) CVA (cerebral vascular accident) Priority: Primary Status: Suspected Qualifiers: CVA mechanism: unspecified Qualified Code(s): I63.9 - Cerebral infarction, unspecified - Discharge Medications Home Medications: Citalopram [CeleXA] 10 mg PO DAILY 12/10/16 [History] Ergocalciferol (VITAMIN D2) [Vitamin D2] 50,000 unit PO SA 12/10/16 [History] Esomeprazole Magnesium [Nexium] 40 mg PO BID PRN 12/10/16 [History] Insulin ASPART [NovoLOG] 0 unit SQ TID 12/10/16 [History] Insulin DETEMIR [Levemir] 40 unit SQ BID 12/10/16 [History] Linagliptin [Tradjenta] 5 mg PO DAILY 12/10/16 [History] Metoprolol [Lopressor] 25 mg PO BID 12/10/16 [History] Acetaminophen [Tylenol Arthritis] 650 mg PO Q8H 02/23/17 [History] Chlorpheniramine/Phenyleph/Dm [Gencontuss Liquid] 10 ml PO Q4H PRN 02/23/17 [ History] Lisinopril [Zestril] 5 mg PO DAILY 02/23/17 [History] Artificial Tears SOLN [Akwa Tears] 1 drop LEFT EYE Q4H PRN bottle 02/24/17 [Rx] Artificial Tears SOLN [Akwa Tears] 1 drop LEFT EYE QID bottle 02/24/17 [Rx] Atorvastatin [Lipitor] 40 mg PO HS tab 02/24/17 [Rx] Dexamethasone [Decadron] 20 mg IVP Q8HR vial 02/24/17 [Rx] Diltiazem CD (24hr) [Cardizem CD] 120 mg PO DAILY 02/24/17 [Rx] Allergies/Adverse Reactions: 3 Allergy/AdvReac Type Severity Reaction Status Date / Time acetaminophen Allergy Rash Verified 02/23/17 15:09 [From Darvocet-N] penicillin V Allergy Rash Verified 02/23/17 15:09 propoxyphene Allergy Rash Verified 02/23/17 15:09 [From Darvocet-N] Tetanus Vaccines and Toxoid Allergy See Verified 02/23/17 15:09 Comments tramadol [From Ultram] Allergy Rash Verified 02/23/17 15:09 Procedures/tests Complete & Pending: Procedures Performed prior 72 hours Category Date Time Status MR head/brain wo con [MR] Routine MRI 02/24/17 12:00 Draft Date of admission: 02/23/17 23:35 Primary care physician: Delfina Middleton, Consults: 02/24/17 12:43 Consult to ENT [CONS] Routine Consulting Provider: [facility] Reason for Consult: Otitis Externa Call Completed: Yes Discharging clinician: Toy Garduno Anticipated date of discharge: 02/24/17 - Patient Status Disposition: Transfer Short-Term Hosp Condition: Fair - Discharge Instructions Instructions: Atrial Fibrillation (DC), Otitis Externa (DC), Otitis Externa ( GEN), Haji Palsy (DC), Haji Palsy (GEN), Diabetes Mellitus Type 2 in Adults (DC) Follow Up With: Delfina Middleton CNP [Primary Care Provider] - 03/04/17 1:30 pm Hospital course: Ms. Javed is a 76 year old female with history of DM2 who presented with left facial drooping. Patient had bilateral external ear infections diagnosed 1 week ago and was treated as an outpatient with azithromycin. The right ear infection cleared up however the left external ear infection persisted. 2 days ago patient states that she developed left facial drooping. Patient was admitted due to concerns for CVA however on physical exam she had upper and lower facial paralysis concerning for a facial nerve palsy. MRI did not reveal a chronic infarct with possible surrounding ischemia however it appears her symptoms may be related more to a malignant otitis externa. Patient was evaluated by ENT and felt that there is concern for malignant otitis externa affecting the facial nerve and recommended that the patient be transferred to a facility where infectious disease and otology specialist are available. Discussed with patient she was agreeable to transfer to [facility]. [facility] was contacted and the transfer was accepted. Patient will be transferred in stable condition. - Time Spent with Patient Total time spent providing and/or coordinating discharge services: - Constitutional Vitals: Temp Pulse Resp BP Pulse Ox 97.7 F 81 14 146/86 93 02/24/17 11:56 02/24/17 11:56 02/24/17 11:56 02/24/17 11:56 02/24/17 11:56 General appearance: Present: cooperative, A&O X 3, no acute distress, answers questions appropriately (But has a delayed response) <Bayron Jason - Last Filed: 02/24/17 16:41> Date of Encounter: 02/24/17 - Discharge Diagnosis (1) Malignant otitis externa of left ear Priority: Primary Status: Acute Qualifiers: Chronicity: acute Qualified Code(s): H60.22 - Malignant otitis externa, left ear (2) Type 2 diabetes mellitus Status: Chronic Qualifiers: Diabetes mellitus complication status: with kidney complications Diabetes mellitus complication detail: with chronic kidney disease Diabetes mellitus mcfp insulin use: with buttermaker continuous churn use Chronic kidney disease stage: stage 3 (moderate) Qualified Code(s): E11.22 - Type 2 diabetes mellitus with diabetic chronic kidney disease; N18.3 - Chronic kidney disease, stage 3 ( moderate); Z79.4 - [facility] (current) use of insulin (3) CVA (cerebral vascular accident) Status: Suspected Qualifiers: CVA mechanism: thrombosis Precerebral and cerebral artery: anterior cerebral artery Laterality of affected vessel: right Qualified Code(s): 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 Javed is a 76 year old female - Time Spent with Patient Total time spent providing and/or coordinating discharge services: 38min - Constitutional Vitals: Temp Pulse Resp BP Pulse Ox 98.0 F 92 13 150/86 94 02/24/17 16:28 02/24/17 16:28 02/24/17 16:28 02/24/17 16:28 02/24/17 16:28 - Attending Attestation I examined this patient and my medical decision-making was reviewed with the Resident Physician on 02/24/17. I agree with the documented findings, disposition and treatment plan as described except to the extent set forth below. Ms Javed has been admitted for probable CVA. She has been found to have significant L otitis externa and concern for extension locally and involving the facial nerve. She has been seen by ENT and will be transferred to [facility]. Exam Alert. L side facial droop and swelling L ear with swelling and drainage Heart reg No wheeze Abd soft Plan Transfer to [facility] for further care and ID evaluation.
--- NOTE | 2017-02-24 15:55 | Carotid Imaging Report ---
Carotid Duplex Patient Name:Doris Javed Order Number:[id number] Procedure Date:02/24/2017 Date:1940ge:76 yrs Gender:Female Lt BP:131 / 84 mmHg Rt.BP:128 / 80 mmHgHeart Rate: Location:[facility] Room #: 2NE35 Bioinformaticist:Justyna Feliciano, YASIRCS, RVT Referring MD:Betty Monsalve MD tin roller hot mill:Delfina Middleton, METAL SASH SETTER Reading MD:Skip Santo MD Primary Indications:Cerebral Vascular Accident Risk Factors Yes/No Diabetes Yes Hypertension Yes Hypercholesterolemia Yes Hx of TIA No Hx of CVA No Impressions: The bilateral carotid arteries have minimal plaque throughout. Recommendations: After imaging the patient returned to their room. Test completed on 02/24/2017 at 11:30:32 am. Findings Carotid Duplex: Right: There is nonstenotic plaque in the right bifurcation. There is smooth homogeneous plaque. There is nonstenotic plaque in the right proximal internal carotid artery. There is irregular heterogeneous plaque. There is nonstenotic plaque in the right eca. There is smooth heterogeneous plaque. There is antegrade spectral Doppler flow patterns in the right vertebral artery. Left: There is nonstenotic plaque in the left bifurcation. There is smooth heterogeneous plaque. The left eca has turbulent flow with plaque. There is smooth homogeneous plaque. There is antegrade spectral Doppler flow patterns in the left vertebral artery. Prior Study: No prior study available for comparison. Carotid Results Right PSV EDV Assessment Proximal CCA 69 12 Normal Mid CCA 62 11 Normal Distal CCA 77 17 Normal Bifurcation 75 11 Non Stenotic Plaque Proximal ICA 50 12 Non Stenotic Plaque Mid ICA 86 21 Normal Distal ICA 43 12 Normal ECA 106 13 Non Stenotic Plaque Vertebral Artery 45 14 Antegrade Flow Left PSV EDV Assessment Proximal CCA 107 15 Normal Mid CCA 119 18 Normal Distal CCA 74 16 Normal Bifurcation 60 8 Non Stenotic Plaque Proximal ICA 57 12 Normal Mid ICA 86 22 Normal Distal ICA 87 23 Normal ECA 136 19 Turbulent Flow Vertebral Artery 69 16 Antegrade Flow Ratio's Right ICA/CCA Ratio: 1.39 ICA/CCA Values: 86/62 Left ICA/CCA Ratio: 0.73 ICA/CCA Values: 87/119 Updated by Skip Santo MD on 02/24/2017 3:50:06 PM electronically signed on 02/24/2017 3:50:45 PM with status of Final
[2017-02-24] MEDS ORDERED: Dexamethasone 10 MG/ML VIAL IVP SCH (16:00)
[2017-02-24 16:31] VITALS: BP 150/86
[2017-02-24] MEDS: Artificial Tears SOLN 15 ML BOTTLE LEFT EYE SCH ×2 (16:38→16:39)
[2017-02-24] MEDS ORDERED: Ciprofloxacin/Dex *EAR* Susp 7.5 ML BOTTLE LEFT EAR SCH (21:00)
== END 2017-02-24 20:30 | disposition short-term general hospital (02) | DRG 154 ==
LOC: 2NENU 15:00 → EMEROO 15:00 → 2NENU 21:18 → SUATTDRO 23:35
PROVIDERS: ADMIT Internal Medicine; ATTEND Internal Medicine

== ENCOUNTER 2018-07-13 13:26 | Inpatient (IN) ==
[2018-07-13 14:22] LABS: Basophils % 0.5 %; Eosinophils # 0.1 K/mcL (0.0-0.6); Eosinophils % 1.1 %; Hematocrit 39.3 % (35.3-44.9); Hemoglobin 13.2 g/dL (11.5-15.4); Immature Granulocytes % 0.2 % (0-4); Lymphocytes # 1.1 K/mcL (0.6-4.6); Lymphocytes % 16.4 %; Mean Corpuscular HGB Conc 33.6 g/dL (31.6-35.5); Mean Corpuscular Hemoglobin 28.8 pg (28.0-33.3); Mean Corpuscular Volume 85.8 fL (83.0-100.0); Mean Platelet Volume 10.3 fL (9.4-12.4); Monocytes # 0.3 K/mcL (0.0-1.3); Monocytes % 3.8 %; Neutrophils # 5.1 K/mcL (1.6-8.9); Platelet Count 188 K/mcL (140-400); Red Blood Count 4.58 M/mcL (3.82-4.97); Red Cell Distribution Width 12.6 % (11.5-14.5)
[2018-07-13 14:31] LABS: INR 0.9; Prothrombin Time 10.6 Seconds (9.4-12.1)
[2018-07-13] MEDS ORDERED: Aspirin 81 MG TAB.CHEW PO SCH (14:45)
[2018-07-13 14:47] LABS: Troponin I 0.28 ng/mL (< 0.04)
[2018-07-13] MEDS ORDERED: *HR* Heparin 5,000 UNIT/ML VIAL IVP PRN ×2 (14:52)
[2018-07-13] MEDS ORDERED: *HR* Heparin 5,000 UNIT/ML VIAL IVP ONE (14:52)
[2018-07-13] MEDS: Nitroglycerin 0.4 MG TAB.SUBL SL PRN ×3 (14:57→15:08)
[2018-07-13 15:03] LABS: Albumin 4.5 g/dL (3.5-5.7); Albumin/Globulin Ratio 1.5 (1.1-2.2); Bilirubin,Total 0.3 mg/dL (0.3-1.0); Calcium 10.4 mg/dL (8.6-10.3); Globulin 3.1 g/dL (2.4-3.5); Potassium 5.6 mEq/L (3.5-5.1); Total Protein 7.6 g/dL (6.4-8.9)
--- NOTE | 2018-07-13 15:08 | Emergency Department Note ---
Disposition Clinical Impression: NSTEMI (non-ST elevated myocardial infarction) Disposition: Admitted As Inpatient Condition: Good Chest Pain HPI - General Chief Complaint: ED Chest Pain Stated Complaint: chest pain Time Seen by Provider: 07/13/18 14:13 Source: patient Limitations: no limitations Vital Signs Reviewed: Yes Nursing Notes Reviewed: Yes - History of Present Illness HPI Narrative: Patient presents for evaluation of chest pain started last night. Patient describes a sensation in her chest that at one point read on her arm. Describes in the neck as well as radiating to her abdomen. Patient describes the sensation is nonspecific. Nothing is significantly makes it better or worse. She related to her potential COPD however she does not have any wheezing or reproducible symptoms on exam. Further evaluation with cardiac workup initiated. (Patient initially signed to different provider but secondary to delay did take over this patient to expedite care given her age and chest pain.) Severity scale (1-10): 7 - Related Data Home Medications Medication Instructions Recorded Confirmed Acetaminophen [Tylenol 8 Hour] 650 mg PO Q8H 07/13/18 Esomeprazole Magnesium [Nexium] 40 mg PO DAILY 07/13/18 Previous Rx's Medication Instructions Recorded RX: Lisinopril [Zestril] 5 mg PO DAILY tablet 03/15/17 Allergies Allergy/AdvReac Type Severity Reaction Status Date / Time acetaminophen Allergy Rash Verified 03/09/17 02:19 [From Darvocet-N] penicillin V Allergy See Verified 07/13/18 21:32 Comments propoxyphene Allergy Rash Verified 07/13/18 21:32 [From Darvocet-N] Tetanus Vaccines and Toxoid Allergy See Verified 03/09/17 02:19 Comments tramadol [From Ultram] Allergy Rash Verified 07/13/18 21:32 Chest Pain PMH - Past Medical History Medical history: Reports: CVA, diabetes, hyperlipidemia, hypertension, renal disease Surgical history: Reports: cholecystectomy, orthopedic, other Psychiatric history: Reports: no psych history - Social History Smoking Status: Current every day smoker Alcohol use: Reports: rarely Drug use: Reports: none Physical Exam - General Limitations: no limitations General appearance: alert, in no apparent distress Course - Reevaluation(s) Reevaluation #1: EKG noted on my evaluation of the patient after patient had been here for approximately 50 minutes. Troponin call approximately 5 minutes later. Discussion with cardiology as below. - Consultations Consultation #1: Discussed with Dr. Marks, cardiology, recommends discussion with interventionalists. Consultation #2: Discussed with the nurse practitioner working alongside the interventionalists who is currently in a case. NSTEMI at this time. They will further evaluate for possible cath later during admission. Consultation #3: Case discussed with hospitalist. Patient accepted for admission. Vital Signs Temperature 98.2 F 07/13/18 13:43 Pulse Rate 92 07/13/18 13:43 Respiratory Rate 27 07/13/18 13:43 Blood Pressure 174/90 07/13/18 13:43 O2 Sat by Pulse Oximetry 95 07/13/18 13:43 Temperature 97.8 F 07/13/18 21:04 Pulse Rate 81 07/14/18 00:05 Respiratory Rate 14 07/14/18 00:05 Blood Pressure 125/69 07/14/18 00:05 O2 Sat by Pulse Oximetry 98 07/14/18 00:05 Oxygen Delivery Oxygen Delivery Room Air Chest Pain - Lab Data Result diagrams: 07/13/18 14:09 07/13/18 14:09 Lab Results 07/13/18 07/13/18 07/13/18 Range/Units 14:09 14:09 14:09 WBC 6.5 (4.3-11.1) K/mcL RBC 4.58 (3.82-4.97) M/mcL Hgb 13.2 (11.5-15.4) g/dL Hct 39.3 (35.3-44.9) % MCV 85.8 (83.0-100.0) fL MCH 28.8 (28.0-33.3) pg MCHC 33.6 (31.6-35.5) g/dL RDW 12.6 (11.5-14.5) % Plt Count 188 (140-400) K/mcL MPV 10.3 (9.4-12.4) fL Immature Gran % 0.2 (0-4) % Seg Neutrophils % 78.0 % Lymphocytes % 16.4 % Monocytes % 3.8 % Eosinophils % 1.1 % Basophils % 0.5 % Neutrophils # 5.1 (1.6-8.9) K/mcL Lymphocytes # 1.1 (0.6-4.6) K/mcL Monocytes # 0.3 (0.0-1.3) K/mcL Eosinophils # 0.1 (0.0-0.6) K/mcL Basophils # 0.0 (0.0-0.2) K/mcL PT 10.6 (9.4-12.1) Seconds INR 0.9 Heparin Anti-Xa, Unfract 0.01 L (0.30-0.70) IU/mL Sodium 132 L (136-145) mEq/L Potassium 5.6 H (3.5-5.1) mEq/L Chloride 103 (98-107) mEq/L Carbon Dioxide 17 L (23-29) mEq/L BUN 26 H (8-23) mg/dL Creatinine 1.56 H (0.60-1.20) mg/dL Est GFR ( Amer) 39 L (> 60) Est GFR (Non-Af Amer) 32 L (> 60) BUN/Creatinine Ratio 17 (6-26) Glucose 365 H (70-105) mg/dL Calculated Osmolality 294 (280-300) Calcium 10.4 H (8.6-10.3) mg/dL Total Bilirubin 0.3 (0.3-1.0) mg/dL AST 15 (13-39) Units/L ALT 7 (7-52) Units/L Alkaline Phosphatase 54 (34-104) Units/L Troponin I 0.28 H* (< 0.04) ng/mL Serum Total Protein 7.6 (6.4-8.9) g/dL Albumin 4.5 (3.5-5.7) g/dL Globulin 3.1 (2.4-3.5) g/dL Albumin/Globulin Ratio 1.5 (1.1-2.2) 07/13/18 Range/Units 16:23 WBC (4.3-11.1) K/mcL RBC (3.82-4.97) M/mcL Hgb (11.5-15.4) g/dL Hct (35.3-44.9) % MCV (83.0-100.0) fL MCH (28.0-33.3) pg MCHC (31.6-35.5) g/dL RDW (11.5-14.5) % Plt Count (140-400) K/mcL MPV (9.4-12.4) fL Immature Gran % (0-4) % Seg Neutrophils % % Lymphocytes % % Monocytes % % Eosinophils % % Basophils % % Neutrophils # (1.6-8.9) K/mcL Lymphocytes # (0.6-4.6) K/mcL Monocytes # (0.0-1.3) K/mcL Eosinophils # (0.0-0.6) K/mcL Basophils # (0.0-0.2) K/mcL PT (9.4-12.1) Seconds INR Heparin Anti-Xa, Unfract (0.30-0.70) IU/mL Sodium (136-145) mEq/L Potassium (3.5-5.1) mEq/L Chloride (98-107) mEq/L Carbon Dioxide (23-29) mEq/L BUN (8-23) mg/dL Creatinine (0.60-1.20) mg/dL Est GFR ( Amer) (> 60) Est GFR (Non-Af Amer) (> 60) BUN/Creatinine Ratio (6-26) Glucose (70-105) mg/dL Calculated Osmolality (280-300) Calcium (8.6-10.3) mg/dL Total Bilirubin (0.3-1.0) mg/dL AST (13-39) Units/L ALT (7-52) Units/L Alkaline Phosphatase (34-104) Units/L Troponin I 0.96 H* (< 0.04) ng/mL Serum Total Protein (6.4-8.9) g/dL Albumin (3.5-5.7) g/dL Globulin (2.4-3.5) g/dL Albumin/Globulin Ratio (1.1-2.2)
[2018-07-13] MEDS ORDERED: 0.9 % Sodium Chloride 1,000 ML IVC ONE (15:09)
[2018-07-13] MEDS ORDERED: Albuterol 2.5 MG/3 ML NEBULIZER IH ONE (15:10)
[2018-07-13 15:11] LABS: Heparin anti-factor XA UFH 0.01 IU/mL (0.30-0.70)
[2018-07-13] MEDS: Heparin 25,000 UNIT/500 ML D5W 25,000 UNIT/500 ML BAG IVC SCH (15:30)
--- NOTE | 2018-07-13 15:59 | Cardiology Consult Note ---
<Erik Stephens - Last Filed: 07/13/18 15:57> Date of Encounter: 07/13/18 Time of Encounter: 15:59 Assessment and Plan (1) NSTEMI (non-ST elevated myocardial infarction) Current Visit: Yes Status: Acute Patient presents with chest pain. Troponin 0.28. EKG with LBBB. Changes reviewed with Dr. Blnachard, does not meet STEMI criteria. She is chest pain free currently. Continue heparin gtt. Asa, statin, and bb. TTE 02/2017- LVEF 65%. Normal LV chamber size, wall thickness and function. Mild left ventricular diastolic dysfunction. Normal right ventricular structure and function. Mild to moderately dilated left atrium. No evidence of a PFO with agitated saline contrast. Unable to estimate RVSP due to lack of TR jet. No cardiac source of emboli identified. TTE ordered. LHC recommended in am. R/B/A of [facility] reviewed and she agrees to proceed. (2) Paroxysmal atrial fibrillation Current Visit: No Status: Chronic H/o atrial fibrillation. Patient recommended to have anticoagulation previously. She is not sure why she is not taking. Will re-evaluate after LHC. Currently NSR. Discussion w patient/family: The assessment and plan as outlined above was discussed with the patient and/or family members who expressed understanding and agreement. All questions were answered. Thank you for involving us in the care of your patient. Please call with any questions. History of Present Illness Consult date: 07/13/18 Requesting physician: Caden Mckenzie Consult reason: NSTEMI Chief complaint: Chest pain starting last night History of present illness: Ms. Javed is a 77 year old female with past medical history of atrial fibrillation, HTN, HLD, and tobacco use who presents from home with chest pain. C/o severe left sided chest discomfort starting last night when she was getting ready for ed. Pain continued all night. This morning she called her sister to take her to the hospital. The patient actually drove herself to her sister's house. Once in the ED she was given 3 SL NTG with relief. Cardiac work-up revealed EKG changes with LBBB. Previous EKG in 2017 showed SR with LAFB. Troponin 0.28. EKG reviewed with interventional cardiology and patient does not meet STEMI criteria. She is pain free on my exam. Denies history of CAD. Noted to be diagnosed with atrial fibrillation in 2017 and eliquis was recommended. Patient did not start this. Currently NSR. Past Med Surg Social Fam HX - Past Medical History Medical history: CVA (Patient states she had CVA like symptoms with shingles. Continues to have right facial droop.), diabetes, hyperlipidemia, hypertension, renal disease Additional medical history: pancreatitis, carotid stenosis Psychiatric history: no psych history - Past Surgical History Surgical History: cholecystectomy, orthopedic, other - Social History Smoking Status: Current every day smoker Alcohol use: rarely Drug use: none - Family History Brother Family Member Ethnicity: Non- Hx Family Endocrine Disorder: Yes (DM) Mother Family Member Ethnicity: Non- Living Status: Hx Family Endocrine Disorder: Yes (DM) Hx Family Neurologic Disorders: Yes (Dementia) Medications and Allergies RX: Ciprofloxacin HCl [Cipro] 750 mg PO BID 03/09/17 [History] RX: Citalopram Hydrobromide [Citalopram HBr] 10 mg PO DAILY 03/09/17 [History] RX: Ergocalciferol (VITAMIN D2) [Vitamin D2] 50,000 unit PO QWEEK 03/09/17 [History] RX: Esomeprazole Magnesium [Nexium] 40 mg PO DAILY 03/09/17 [History] RX: Fenofibrate Nanocrystallized [Tricor] 145 mg PO DAILY 03/09/17 [History] RX: HYDROcodone/Acet 5/325 mg [[place] 5-325 mg] 1 tab PO Q4H PRN 03/09/17 [History] RX: Insulin ASPART [NovoLOG] 20 unit SQ TID MDD SLIDING SCALE 03/09/17 [History] RX: Insulin DETEMIR [Levemir] 40 unit SQ BID 03/09/17 [History] RX: Linagliptin [Tradjenta] 5 mg PO DAILY 03/09/17 [History] RX: Lisinopril [Zestril] 5 mg PO DAILY 03/09/17 [History] RX: Tobramycin/Dex Opth DROPS [Tobradex Opth Drops] 4 drop LEFT EAR BID 03/09/17 [History] RX: Valacyclovir HCl [Valtrex] 1,000 mg PO Q8H 03/09/17 [History] RX: Citalopram [CeleXA] 10 mg PO DAILY tablet 03/15/17 [Rx] RX: Fenofibrate [Tricor] 162 mg PO DAILY tablet 03/15/17 [Rx] RX: Glucagon, Human Recombinant [Glucagen] 1 mg IM ONCE PRN vial 03/15/17 [Rx] RX: Lisinopril [Zestril] 5 mg PO DAILY tablet 03/15/17 [Rx] RX: Omeprazole [PriLOSEC] 20 mg PO DAILY capsule. 03/15/17 [Rx] RX: Ondansetron ODT [Zofran ODT] 4 mg SL Q8HR PRN tab.rapdis 03/15/17 [Rx] RX: Sennosides/Docusate Sodium [Senna Plus] 1 each PO BID PRN tablet 03/15/17 [Rx] RX: Sodium Chloride [Sodium Chloride Tab] 1 gm PO BID tablet 03/15/17 [Rx] Allergy/AdvReac Type Severity Reaction Status Date / Time acetaminophen Allergy Rash Verified 03/09/17 02:19 [From Darvocet-N] penicillin V Allergy Rash Verified 03/09/17 02:19 propoxyphene Allergy Rash Verified 03/09/17 02:19 [From Darvocet-N] Tetanus Vaccines and Toxoid Allergy See Verified 03/09/17 02:19 Comments tramadol [From Ultram] Allergy Rash Verified 03/09/17 02:19 All Systems Review: The remainder of the systems were reviewed and are negative Physical Examination Vital Signs, Last 4 Hours Temp Pulse Resp BP Pulse Ox 07/13/18 15:54 17 95 07/13/18 15:38 104 17 108/79 95 07/13/18 15:11 105 21 126/86 93 07/13/18 15:05 104 22 149/99 94 07/13/18 14:58 93 19 130/90 97 07/13/18 13:52 92 18 174/90 96 07/13/18 13:43 98.2 F 92 27 174/90 95 General: Conversant, No Apparent Distress HEENT: Atraumatic, Normocephaly, Mucus Membranes Moist Neck: No JVD, Normal carotid pulses Cardiac: Reg Rate and Rhythm, Normal S1 and S2, No Murmur Lungs: Normal Breath Sounds, No Wheeze, Rales, Rhonchi Neuro: Alert and responsive, No focal deficits noted Abdomen: Soft, Non-Tender Skin: No rashes noted on visualized skin Musculoskeletal: No Chest Wall Tenderness Extremities: No Clubbing, No Cyanosis, No Edema, Normal Pulses Results 07/13/18 14:09 07/13/18 14:09 Lab Results 07/13/18 07/13/18 07/13/18 14:09 14:09 14:09 WBC 6.5 Hgb 13.2 Hct 39.3 Plt Count 188 INR 0.9 Sodium 132 L Potassium 5.6 H Chloride 103 Carbon Dioxide 17 L BUN 26 H Creatinine 1.56 H Glucose 365 H Calcium 10.4 H Total Bilirubin 0.3 AST 15 ALT 7 Alkaline Phosphatase 54 Troponin I 0.28 H* - Imaging and Cardiology Echo: pending, report reviewed - EKG Interpretation EKG results cardiology: personally reviewed Consult Discharge Plan - Plan Referrals: Delfina Middleton, [facility] [Primary Care Provider] - <Deisy Blanchard - Last Filed: 07/13/18 16:40> Date of Encounter: 07/13/18 - Attending Attestation I have personally performed a face to face evaluation on this patient. I have reviewed and agree with the care plan. History and Exam by me shows: 77 YOF with LBBB andelevated trops. Chest pain resolved after NTG SL and breathing treatment. Chest pain on and off over last few weeks. R/B/A of a LHC d/w patient and she agrees to proceed. Serial CE's and if elevated significantly will consider urgent LHC. Now chest pain free breathing much better. Recent ECHO with preserved EF. Assessment and Plan Discussion w patient/family: The assessment and plan as outlined above was discussed with the patient and/or family members who expressed understanding and agreement. All questions were answered. Thank you for involving us in the care of your patient. Please call with any questions. History of Present Illness History of present illness: Ms. Javed is a 77 year old female All Systems Review: The remainder of the systems were reviewed and are negative Physical Examination Vital Signs, Last 4 Hours Temp Pulse Resp BP Pulse Ox 07/13/18 15:54 17 95 07/13/18 15:38 104 17 108/79 95 07/13/18 15:11 105 21 126/86 93 07/13/18 15:05 104 22 149/99 94 07/13/18 14:58 93 19 130/90 97 07/13/18 13:52 92 18 174/90 96 07/13/18 13:43 98.2 F 92 27 174/90 95 Results 07/13/18 14:09 07/13/18 14:09 Lab Results 07/13/18 07/13/18 07/13/18 14:09 14:09 14:09 WBC 6.5 Hgb 13.2 Hct 39.3 Plt Count 188 INR 0.9 Sodium 132 L Potassium 5.6 H Chloride 103 Carbon Dioxide 17 L BUN 26 H Creatinine 1.56 H Glucose 365 H Calcium 10.4 H Total Bilirubin 0.3 AST 15 ALT 7 Alkaline Phosphatase 54 Troponin I 0.28 H*
[2018-07-13] MEDS ORDERED: Aspirin 81 MG TAB.CHEW PO ONE (16:15)
--- NOTE | 2018-07-13 16:55 | Internal Med History&Physical ---
Date of Encounter: 07/13/18 Time of Encounter: 16:54 Internal Medicine - H&P: HPI Chief complaint: chest pain Admitted From: Home Plans for Post Hospital Care: Home History of present illness: Ms. 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 aicha who is a smoker came in with complain of chest pain since about 1-1/2 day. Patient started having chest pain the night before the day of admission in the morning when the pain woke her up. She could not go back to sleep due to pain. She presented to the pain came to ER today. She denied any nausea vomiting palpitation lightheadedness or dizziness. Denied any difficulty breathing. Denied any cough or any trauma. She denies previous chest pain, n ight time shortness of breath or leg swelling. Patient was evaluated in the ER which showed elevated troponin, EKG with left bundle branch block. troponin was elevated at 0.28. Cardiology was consulted who deemed patient does not meet STEMI criteria. She received nitroglycerin, 1 bolus of NS and was started on heparin drip. At the time of interview patient with minimal chest discomfort. He denied any difficulty breathing. Patient unclear of her home medication Past Med Surg Social Fam HX - Past Medical History Medical history: diabetes, hyperlipidemia, hypertension, renal disease Additional medical history: pancreatitis, carotid stenosis, otitis externa leading to left facial paresis Psychiatric history: no psych history - Past Surgical History Surgical History: , cholecystectomy, orthopedic, other (back surgery) - Social History Smoking Status: Current every day smoker Alcohol use: rarely Drug use: none - Family History Mother Family Member Ethnicity: Non- Living Status: Hx Family Endocrine Disorder: Yes (DM) Hx Family Neurologic Disorders: Yes (Dementia) Brother Family Member Ethnicity: Non- Hx Family Endocrine Disorder: Yes (DM) Internal Medicine - H&P: Meds Ciprofloxacin HCl [Cipro] 750 mg PO BID 03/09/17 [History] Citalopram Hydrobromide [Citalopram HBr] 10 mg PO DAILY 03/09/17 [History] Ergocalciferol (VITAMIN D2) [Vitamin D2] 50,000 unit PO QWEEK 03/09/17 [History] Esomeprazole Magnesium [Nexium] 40 mg PO DAILY 03/09/17 [History] Fenofibrate Nanocrystallized [Tricor] 145 mg PO DAILY 03/09/17 [History] HYDROcodone/Acet 5/325 mg [[place] 5-325 mg] 1 tab PO Q4H PRN 03/09/17 [History] Insulin ASPART [NovoLOG] 20 unit SQ TID MDD SLIDING SCALE 03/09/17 [History] Insulin DETEMIR [Levemir] 40 unit SQ BID 03/09/17 [History] Linagliptin [Tradjenta] 5 mg PO DAILY 03/09/17 [History] Lisinopril [Zestril] 5 mg PO DAILY 03/09/17 [History] Tobramycin/Dex Opth DROPS [Tobradex Opth Drops] 4 drop LEFT EAR BID 03/09/17 [History] Valacyclovir HCl [Valtrex] 1,000 mg PO Q8H 03/09/17 [History] Citalopram [CeleXA] 10 mg PO DAILY tablet 03/15/17 [Rx] Fenofibrate [Tricor] 162 mg PO DAILY tablet 03/15/17 [Rx] Glucagon, Human Recombinant [Glucagen] 1 mg IM ONCE PRN vial 03/15/17 [Rx] Lisinopril [Zestril] 5 mg PO DAILY tablet 03/15/17 [Rx] Omeprazole [PriLOSEC] 20 mg PO DAILY capsule. 03/15/17 [Rx] Ondansetron ODT [Zofran ODT] 4 mg SL Q8HR PRN tab.rapdis 03/15/17 [Rx] Sennosides/Docusate Sodium [Senna Plus] 1 each PO BID PRN tablet 03/15/17 [Rx] Sodium Chloride [Sodium Chloride Tab] 1 gm PO BID tablet 03/15/17 [Rx] Allergy/AdvReac Type Severity Reaction Status Date / Time acetaminophen Allergy Rash Verified 03/09/17 02:19 [From Darvocet-N] penicillin V Allergy Rash Verified 03/09/17 02:19 propoxyphene Allergy Rash Verified 03/09/17 02:19 [From Darvocet-N] Tetanus Vaccines and Toxoid Allergy See Verified 03/09/17 02:19 Comments tramadol [From Ultram] Allergy Rash Verified 09/19/17 02:19 All Systems PM: A 10-system review of systems was performed and is negative for pertinent findings except as documented above in the HPI. - Constitutional Vitals: Temp Pulse Resp BP Pulse Ox 98.2 F 104 17 108/79 95 07/13/18 13:43 07/13/18 15:38 07/13/18 15:54 07/13/18 15:38 07/13/18 15:54 Exam: Constitutional: Vitals as noted. Conversant. No Apparent Distress. Eyes : Sclera white, conjunctiva clear, no lid lag, PEARLA. ENT : Grossly normal hearing. Oropharyngeal exam unremarkable. Moist mucus membranes. No JVD, no cervical lymphadenopathy. no thyromegaly or mass. Respiratory : rales at base b/l, No accessory muscle use, rhonchi or wheezes Cardiovascular : RRR, +S1, +S2. no murmur, gallop, rubs. No chest wall tenderness GI/Abdominal : obese, Soft, Non-tender, Non-distended, normal bowel sounds, soft, no peritoneal signs. no orgenomegaly or mass appreciated. no hernia. Musculoskeletal: no deformity noted. no edema or cyanosis. warm extremities, pulses palpable and symmetrical in UE/LE. no calf tenderness. Neurological: AO X3, left-sided facial paralysis, able to frown had, normal speech, grossly normal motor and sensory exam. Skin: No skin rash, lesions or ulcers noted. Pych: Good insight and judgement. Intact memory. AOx3. Internal Med - H&P Results - Labs CBC & Chem 7: 07/13/18 14:09 07/13/18 14:09 Labs: Short CBC 07/13/18 Range/Units 14:09 WBC 6.5 (4.3-11.1) K/mcL Hgb 13.2 (11.5-15.4) g/dL Hct 39.3 (35.3-44.9) % Plt Count 188 (140-400) K/mcL Neutrophils # 5.1 (1.6-8.9) K/mcL BMP 07/13/18 14:09 Sodium 132 L Potassium 5.6 H Chloride 103 Carbon Dioxide 17 L BUN 26 H Creatinine 1.56 H Glucose 365 H Calcium 10.4 H Cardiac Enzymes 07/13/18 Range/Units 14:09 Troponin I 0.28 H* (< 0.04) ng/mL Liver Function 07/13/18 Range/Units 14:09 Total Bilirubin 0.3 (0.3-1.0) mg/dL AST 15 (13-39) Units/L ALT 7 (7-52) Units/L Alkaline Phosphatase 54 (34-104) Units/L Albumin 4.5 (3.5-5.7) g/dL - EKG Data -: EKG Interpreted by Myself EKG shows normal: sinus rhythm (left bundle branch block) - Impressions ITS Impressions Chest X-Ray 07/13/18 14:43 IMPRESSION: No acute abnormality. D/ / Iglesia Looney MD / Iglesia Looney MD Interpreting Provider: Iglesia Looney MD - Assessment and plan (1) NSTEMI (non-ST elevated myocardial infarction) Current Visit: Yes Status: Acute Assessment and plan: - Patient with signs and symptoms of NSTEMI - Patient already started on heparin drip after discussion with cardiology - Plan for [facility] tomorrow morning. Nothing by mouth after midnight - Patient started on aspirin, atorvastatin and metoprolol by cardiology - Follow-up echocardiogram. Previous echo from 2017 with EF of 65%, moderate diastolic dysfunction - When necessary nitroglycerin for pain (2) Haji's palsy Current Visit: No Status: Acute Assessment and plan: - Patient had left-sided facial paralysis which initially was thought to be from CVA. Per patient currently later found that she had shingles in her left ear - Currently with minimal residual left-sided weakness and facial asymmetry. No other weakness present (3) DVT prophylaxis Current Visit: No Status: Acute Assessment and plan: On heparin (4) Facial paralysis on left side Current Visit: No Status: Acute Assessment and plan: As above (5) Hypertension Current Visit: No Status: Acute Assessment and plan: - Blood pressure stable - Started on beta han for CAD - Confirm home medication. We will resume as needed if appropriate Qualifiers: Qualified Code(s): I10 - Essential (primary) hypertension (6) CKD (chronic kidney disease), stage III Current Visit: No Status: Chronic Assessment and plan: - Stable renal function - Discussed possible renal risk with [facility] - We will keep patient on IV fluids 3-4 hour before LHC and 3-4 hours after contrast (7) Type 2 diabetes mellitus Current Visit: No Status: Chronic Assessment and plan: - Keep patient on Accu-Cheks and sliding scale Qualifiers: Diabetes mellitus custodial insulin use: with book sorter use Diabetes gonsalo litus complication status: with kidney complications Diabetes mellitus co mplication detail: with chronic kidney disease Chronic kidney disease stage: stage 3 (moderate) Qualified Code(s): E11.22 - Type 2 diabetes mellitus with diabetic chronic kidney disease; N18.3 - Chronic kidney disease, stage 3 (modera te); Z79.4 - senior care (current) use of insulin (8) Paroxysmal atrial fibrillation Current Visit: No Status: Chronic Assessment and plan: - Currently in sinus rhythm - Unclear to patient why not on anticoagulation - currently on heparin drip - cardiology following (9) HLD (hyperlipidemia) Current Visit: Yes Status: Acute Assessment and plan: - Continue home medication once confirmed Qualifiers: Hyperlipidemia type: unspecified Qualified Code(s): E78.5 - Hyperlipidemia, unspecified (10) Hyperkalemia Current Visit: Yes Status: Acute Assessment and plan: - Potassium of 5.6. EKG changes related to NSTEMI - Unclear what patient home medication are which might be contributing - Also possible from CKD as patient also has some acidosis with bicarbonate of 17 - We will confirm home medication. If 1 bicarbonate we will resume. - We will give 1 dose of Kayexalate - Time Spent With Patient Total time spent is greater than 50% in coordination of care (as documented) at patient's floor/unit and/or counseling patient:
[2018-07-13] MEDS ORDERED: *HR* Heparin 10,000 UNIT/10 ML VIAL ONE (19:25)
[2018-07-13] MEDS ORDERED: Heparin 1,000 UNITS/500 mL 500 ML ONE (19:25)
[2018-07-13] MEDS ORDERED: ISOVUE-370 200 ML INFUS..BTL ONE ×2 (19:25→20:11)
[2018-07-13] MEDS ORDERED: 0.9 % Sodium Chloride 1,000 ML ONE ×2 (19:25→19:33)
[2018-07-13] MEDS ORDERED: Nitroglycerin 1,000 MCG/10 ML VIAL IV ONE (19:25)
[2018-07-13] MEDS ORDERED: Perflutren Lipid Microsphere 1.3 ML in 0.9 % Sodium Chloride 8.7 ML IVP ONE (19:39)
[2018-07-13] MEDS ORDERED: *HR* Midazolam HCl 2 MG/2 ML VIAL ONE (19:49)
[2018-07-13] MEDS ORDERED: *HR* FentaNYL (PF) 100 MCG/2 ML VIAL ONE (19:50)
--- NOTE | 2018-07-13 19:53 | Pre-Sedation Evaluation ---
Pre-sedation evaluation - Pre-sedation checklist Date of procedure: 07/13/18 Procedure: C Recent Vitals: Last Vital Signs Temp 98.2 F 07/13/18 13:43 Pulse 104 07/13/18 15:38 Resp 17 07/13/18 15:54 BP 108/79 07/13/18 15:38 Pulse Ox 95 07/13/18 15:54 H&P (including ROS) documented in medical record: Yes Previous reaction to sedatives/anesthetics: No Dietary Status: NPO after Midnight Dentition: poor dentition ASA Classification *see protocol: CLASS II-Mild systemic disease Cardiac Registry (Cardio Only) - Functional Capacity Functional Capacity: >=4 METS with symptoms - Clincal Frailty Scale Clinical Frailty Scale: Managing Well
[2018-07-13] MEDS ORDERED: Tirofiban 12.5 MG/250ML 12.5 MG/250 ML BAG ONE (20:05)
[2018-07-13] MEDS ORDERED: *HR* Labetalol 100 MG/20 ML MDV ONE (20:35)
[2018-07-13] MEDS ORDERED: Tirofiban 12.5 MG/250ML 12.5 MG/250 ML BAG IVC SCH (20:45)
[2018-07-13] MEDS ORDERED: *HR* Ticagrelor 90 MG TABLET ONE (20:53)
--- NOTE | 2018-07-13 21:08 | Invasive Diagnostic Lab Proc ---
Name: Doris Javed Date of Study: 07/13/2018 Date: 1940 Ht: 63.0in Medical Record#: [id number] Age: 77 Wt: 193.00lb Gender: Female BSA: 1.91 Order #: [id number] BMI: 34.19 Physicians Procedure Physician: Deisy Blanchard MD Referring MD: Referring MD: Staff Name Position Time In Yue Gandhi RN Monitor 07:55 PM Dante Calzada RN Travel Accommodation Inspector 07:55 PM Aftab Ho RT (R) Scrub 07:55 PM Indications Indication Non-Stemi Procedures Performed Procedure L HRT ARTERY/VENTRICLE ANGIO PRQ CARD VI STENT W/ANGIO 1 VSL PRQ CARD STENT W/ANGIO ADDL Pre-Procedure Checklist Informed consent is complete signed and on chart. H&P is on chart. ID band is on and ID verified with patient. Patient NPO for procedure The procedure was described for the patient and questions were answered. Blood Pressure: 108/79 ECG is on chart. Plan of Care Patient will tolerate the procedure without complications. Adequate level of comfort will be maintained. Hemodynamics will remain stable Patient will recover from procedure without complications. Respiratory function will be maintained. Cardiac rhythm will remain stable. Patient temperature will be maintained. Patient and/or family have verbalized understanding of the procedure. Patient Education Intravenous Access Time IV Size Location DC'd Fluid/Drip Rate Units RN 07:45 PM 20g 1 /" Patent On Arrival Rt Wrist 0.9NaCl 25 ml/hr Dante Calzada RN Allergies Tetanus Vaccines and Toxoid propoxyphene acetaminophen penicillin V tramadol No Known Allergies PCN (penicillin) Dtap (Daptacel, Infanrix, [employer]) Td (Decavac) DT (diphtheria toxoid - tetanus tox TETANUS,PCN,DARVOCET TETANUS,PCN,DARVACET,BALSOM OF RYLEE Vital Signs Time BP (mmHg) HR (bpm) O2 Sat. RR (bpm) LOC 07:31 PM 108 / 79 104 95 % 16 5 = Fully awake and oriented or at pre-proc level 07:54 PM / % 5 = Fully awake and oriented or at pre-proc level 07:54 PM / % 4 = Oriented but drowsy 08:09 PM / % 4 = Oriented but drowsy 08:24 PM / % 4 = Oriented but drowsy 07:49 PM 143 / 89 95 95 % 14 07:54 PM 138 / 80 95 91 % 34 07:59 PM 137 / 84 93 90 % 10 08:04 PM 142 / 79 93 91 % 12 08:09 PM 141 / 76 92 93 % 15 08:14 PM 140 / 87 95 94 % 12 08:20 PM 163 / 92 96 96 % 16 08:24 PM 165 / 100 96 95 % 12 08:29 PM 171 / 93 97 96 % 14 08:34 PM 172 / 105 98 88 % 10 08:39 PM 160 / 94 94 90 % 16 08:44 PM 139 / 79 % Procedural Medications Time Medication Dose Units Method Given By 07:54 PM Oxygen 2 L/min nasal cannula Dante Calzada RN 07:54 PM Versed 1 mg Intravenous Dante Calzada RN 07:54 PM Fentanyl 50 mcg Intravenous Dante Calzada RN 07:57 PM Lidocaine 2% 16 ml Subcutaneous Deisy Blanchard MD 08:06 PM Aggrastat Bolus: 42 ml Intravenous Dante Calzada RN 08:06 PM Aggrastat 12.5mg/250ml 7.5 ml/hr Intravenous Dante Calzada RN 08:07 PM Heparin 4000 units Intravenous Dante Calzada RN 08:27 PM Fentanyl 25 mcg Intravenous Dante Calzada RN 08:34 PM Nitroglycerin 200 mcg Intracoronary Juan Francisco Blanchard MD 08:35 PM Labetolol 10 mg Intravenous Dante Calzada RN 08:35 PM Nitroglycerin 200 mcg Intracoronary Juan Francisco Blanchard MD 08:35 PM Oxygen 4 L/min nasal cannula Dante Calzada RN 08:37 PM Nitroglycerin 200 mcg Intracoronary Juan Francisco Blanchard MD 08:40 PM Brilinta 180 mg Orally Dante Calzada RN ASA Classification: CLASS II- Mild systemic disease (i.e. well-controlled diabetes, hypertension, asthma, cigarette smoking) Farida Score Preprocedure Postprocedure Activity 2- Moves 4 extremities sustained head lift Activity 2- Moves 4 extremities sustained head lift Circulation 2- SBP +/= 20 points of pre-anesthetic level Circulation 2- SBP +/= 20 points of pre-anesthetic level Consciousness 2- Awake and alert oriented x 3 Consciousness 2- Awake and alert oriented x 3 O2 Saturation 2- Able to maintain O2 satruation of 92% on room air O2 Saturation 2- Able to maintain O2 satruation of 92% on room air Respiratory 2- Able to deep breathe and cough well Respiratory 2- Able to deep breathe and cough well Total Score 10 Total Score 10 Contrast Agent: Isovue Diagnostic Contrast: 292 ml Total Contrast: 292 ml Fluoro Dose: 13796 mGy Activated Clotting Time Time Seconds to Clot 08:06 PM 122 08:46 PM 213 Procedure Log Time Note Enter By 07:30 PM CathStat 07:45 PM Pt arrived to mill laborer 2 at 19:45 scoates 07:45 PM Physician arrived 19:45 scoates 07:45 PM Meet and greet completed scoates 07:45 PM Sign in performed according to hospital policy. Informed consent was obtained. scoates 07:46 PM Procedure start 19:46 scoates 07:48 PM Vitals capture started with the following parameters, Patient=Adult, Interval=5 min, Initial Cguhxprg=944 mmHg, Deflation Rate=5 mmHg, Cuff placed on Right Arm 07:49 PM HR=95 bpm, MQVL=351/89 mmhg, SpO2=95.0 %, Resp=14 B/min, EtCO2=30 mmHg, Comment=sr w/ bbb 07:53 PM Pressure channel 1 zeroed. 07:54 PM Time: 19:54 Patient comfortable and pain free: Yes scoates 07:54 PM Time: 19:54LOC: 5 = Fully awake and oriented or at pre-proc level scoates 07:54 PM Time: 19:54 Oxygen on at 2 L/min per nasal cannula by Dante Calzada RN scoates 07:54 PM HR=95 bpm, HGYM=294/80 mmhg, SpO2=91.0 %, Resp=34 B/min, Comment=sr w/ bbb 07:54 PM Time: 19:54 Versed 1 mg Intravenous Given by Dante Calzada RN scoates 07:54 PM Time: 19:54 Fentanyl 50 mcg Intravenous Given by Dante Calzada RN scoates 07:54 PM Patient charges- Angio tray pack, Navilyst 3mm J, Pulse Oximetry and ACIST tubing and transducer scoates 07:54 PM Case Delayed no scoates 07:55 PM Hair removed from procedure site in procedure lab using clippers. Bilateral groin prepped with Chloraprep by Yue Gandhi RN, then patient was draped. Skin intact. scoates 07:55 PM Yue Gandhi RN Position: Monitor Time in: 19:55 scoates 07:55 PM Dante Calzada RN Position: Travel Accommodation Inspector Time in: 19:55 scoates 07:55 PM Aftab Ho RT (R) Position: Scrub Time in: 19:55 scoates 07:55 PM Clinical Presentation: Non-STEMI scoates 07:55 PM Time out was performed according to hospital policy. Conscious sedation and anesthesia was achieved (see medication log with in this report above) scoates 07:57 PM Time: 19:57 16 ml Lidocaine 2% to right groin Subcutaneous Given by Deisy Blanchard MD scoates 07:58 PM Unsuccessful access attempt # 1 into the right Femoral artery. Manual pressure applied to achieve hemostasis.. scoates 07:58 PM Unsuccessful access attempt # 2 into the right Femoral artery. Manual pressure applied to achieve hemostasis.. scoates 07:58 PM Micro-Introducer Kit utilized for sheath placement scoates 07:58 PM Access obtained by percutaneous puncture. 6Fr 11cm Terumo [place] sheath placed in right Femoral artery. [id number] scoates 07:58 PM 5Fr FR 4 catheter inserted over the wire DN scoates 07:59 PM HR=93 bpm, JIYO=625/84 mmhg, SpO2=90.0 %, Resp=10 B/min, EtCO2=30 mmHg, Comment=sr w/ bbb 07:59 PM RCA angiography performed in multiple views. scoates 07:59 PM RCA angiography performed in multiple views. scoates 07:59 PM Recorded Pressure: Ao, HR=94, Condition=Condition 1 (Aorta) Ao 120/89/105 08:00 PM Catheter removed scoates 08:00 PM 5Fr FL 4 catheter inserted over the wire DNC scoates 08:00 PM Coronary Dominance: right scoates 08:00 PM Lesion found in Mid RCA. Pre Stenosis: 65 Pre SISI Flow: scoates 08:02 PM LCA angiography performed in multiple views. scoates 08:02 PM Recorded Pressure: Ao, HR=91, Condition=Condition 1 (Aorta) Ao 130/86/107 08:03 PM Catheter removed scoates 08:03 PM PCI Status Urgent scoates 08:04 PM Lesion found in Mid LAD. Pre Stenosis: 99 Pre SISI Flow: 3: Complete and Brisk Flow/Perfusion scoates 08:04 PM 5Fr Pigtail catheter inserted over the wire [facility] scoates 08:04 PM Catheter crossed the aortic valve and was selectively placed in the left ventricle. Pressures recorded on pullback for left heart catheterization. scoates 08:04 PM Recorded Pressure: LV, HR=93, Condition=Condition 1 (Left Ventricle) LV 144/15/17 08:04 PM HR=93 bpm, ZBUR=072/79 mmhg, SpO2=91.0 %, Resp=12 B/min, Comment=sr w/ bbb 08:04 PM Recorded Pressure: LV, Ao, HR=94, Condition=Condition 1 (Left Ventricle) LV 144/16/17, (Aorta) Ao 143/74/106 08:05 PM Catheter removed scoates 08:05 PM Lesion found in 1st Diagonal. Pre Stenosis: 99 Pre SISI Flow: 3: Complete and Brisk Flow/Perfusion scoates 08:05 PM 6Fr XB LAD 3.5 [place] Bright-Tip guide catheter was used to cannulate the PCI vessel successfully. reused? No scoates 08:05 PM Inflation device was opened. scoates 08:06 PM At 20:06 the ACT was 122 seconds. scoates 08:06 PM Time: 20:06 Aggrastat Bolus: 42 ml Intravenous Given by Dante Calzada RN Louis pump scoates 08:07 PM Time: 20:06 Aggrastat 12.5mg/250ml 7.5 ml/hr Intravenous Given by Dante Calzada RN Louis pump scoates 08:07 PM Recorded Pressure: Ao, HR=94, Condition=Condition 1 (Aorta) Ao 147/80/107 08:07 PM Time: 20:07 Heparin 4000 units Intravenous Given by Dante Calzada RN scoates 08:09 PM Time: 19:54 Patient comfortable and pain free: Yes scoates 08:09 PM Time: 19:54LOC: 4 = Oriented but drowsy scoates 08:09 PM HR=92 bpm, CYFT=993/76 mmhg, SpO2=93.0 %, Resp=15 B/min, Comment=sr w/ bbb 08:10 PM .014 [employer] [place] 190cm guide wire across target lesion- successful. reused? No wire in diag scoates 08:11 PM .014 [employer] [place] 190cm guide wire across target lesion- successful. reused? No wire in LAD scoates 08:12 PM 2.0 mm x 12 mm Emerge [employer] balloon across target lesion- successful. reused? No Balloon inserted on wire down LAD scoates 08:14 PM Balloon inflated @ 6 elizabeth for 6 seconds scoates 08:14 PM Balloon inflated @ 6 elizabeth for 6 seconds scoates 08:14 PM Recorded Pressure: Ao, HR=94, Condition=Condition 1 (Aorta) Ao 117/74/94 08:14 PM HR=95 bpm, IKVM=715/87 mmhg, SpO2=94.0 %, Resp=12 B/min, Comment=sr w/ bbb 08:14 PM Balloon inflated @ 6 elizabeth for 6 seconds scoates 08:15 PM Balloon inflated @ 8 elizabeth for 6 seconds scoates 08:16 PM Balloon catheter removed intact. scoates 08:16 PM 2.0 mm x 12 mm [employer]ge [employer] balloon across target lesion- successful. reused? Yes scoates 08:20 PM HR=96 bpm, WUWG=797/92 mmhg, SpO2=96.0 %, Resp=16 B/min, EtCO2=31 mmHg, Comment=sr w/ bbb 08:21 PM balloon removed intact, not deployed down the Diag scoates 08:24 PM 2.0 mm x 12 mm Emerge [employer] balloon across target lesion- successful. reused? No new balloon used scoates 08:24 PM Time: 20:09LOC: 4 = Oriented but drowsy scoates 08:24 PM Time: 20:09 Patient comfortable and pain free: Yes scoates 08:24 PM HR=96 bpm, JWSH=298/100 mmhg, SpO2=95.0 %, Resp=12 B/min, Comment=sr w/ bbb 08:25 PM Balloon inflated @ 6 elizabeth for 9 seconds- Diag scoates 08:25 PM Balloon inflated @ 6 elizabeth for 4 seconds scoates 08:25 PM Balloon inflated @ 6 elizabeth for 4 seconds scoates 08:27 PM Time: 20:27 Fentanyl 25 mcg Intravenous Given by Dante Calzada RN scoates 08:27 PM 2.5mm x 12mm Synergy drug-eluting stent across target lesion- successful Lot #[id number] scoates 08:28 PM Stent deployed @ 11 elizabeth for 7 seconds scoates 08:29 PM Stent balloon reinflated @ 12 elizabeth for 10 seconds scoates 08:29 PM HR=97 bpm, XQNT=351/93 mmhg, SpO2=96 %, Resp=14 B/min 08:30 PM Stent delivery system removed intact. scoates 08:32 PM 3.5mm x 24mm Synergy drug-eluting stent across target lesion- successful Lot #[id number] scoates 08:33 PM Stent deployed @ 11 elizabeth for 8 seconds scoates 08:33 PM Stent balloon reinflated @ 16 elizabeth for 5 seconds scoates 08:34 PM Stent delivery system removed intact. scoates 08:34 PM HR=98 bpm, ZUFS=530/105 mmhg, SpO2=88.0 %, Resp=10 B/min, EtCO2=30 mmHg, Comment=sr w/ bbb 08:34 PM Time: 20:34 Nitroglycerin 200 mcg Intracoronary Given by Juan Francisco Blanchard MD scoates 08:35 PM Time: 20:35 Labetolol 10 mg Intravenous Given by Dante Calzada RN scoates 08:35 PM Time: 20:35 Nitroglycerin 200 mcg Intracoronary Given by Juan Francisco Blanchard MD scoates 08:36 PM Time: 20:35 Oxygen on at 4 L/min per nasal cannula by Dante Calzada RN scoates 08:37 PM Time: 20:37 Nitroglycerin 200 mcg Intracoronary Given by Juan Francisco Blanchard MD scoates 08:39 PM Guide wire removed intact. scoates 08:39 PM Guide wire removed intact. x2 scoates 08:39 PM Time: 20:24LOC: 4 = Oriented but drowsy scoates 08:39 PM Guide catheter removed intact. scoates 08:39 PM HR=94 bpm, GXEU=499/94 mmhg, SpO2=90.0 %, Resp=16 B/min, Comment=sr w/ bbb 08:40 PM ACT drawn scoates 08:40 PM Time: 20:40 Brilinta 180 mg Orally Given by Dante Calzada RN scoates 08:41 PM Procedure completed at 20:41 07/13/2018 scoates 08:41 PM Did you address SISI flow and Dominance? Yes scoates 08:42 PM Sign out completed: Radiation Dose 1999 mGy, 17926 cGy/cm2 Fluoro Time: 13.6 Isovue 370 - 200ml contrast 292 ml given by Deisy Blanchard MD. Complications: None. The patient was discharged out of the cytogenetics laboratory manager in stable condition. Cardiac Rehab Consult needed: YesConfirmed administered medications: Yes scoates 08:42 PM Isovue 370 - 200ml,2 Bottle(s) used. scoates 08:42 PM Sheath left in place to be pulled on floor/holding area scoates 08:42 PM Estimated Blood Loss: less than 20cc scoates 08:42 PM Post ECG Sr w/ bbb scoates 08:42 PM Post Blood Pressure 160/94 scoates 08:43 PM 20:42 Post Pulses Bilateral DP 2+ scoates 08:43 PM 20:43 Post Pulses Bilateral PT 1+ scoates 08:43 PM Information taught Cardiac Cath and PCI scoates 08:43 PM Education needs Procedure, Plan of Care, and Responsibilities of Patient in Care scoates 08:44 PM Learning barriers :None scoates 08:44 PM Education Methods Verbal scoates 08:44 PM FUMH=200/79 mmhg 08:46 PM At 20:46 the ACT was 213 seconds. scoates 08:46 PM Education evaluation Able to repeat information scoates 08:46 PM Site status No bleeding/hematoma - Rt Groin as reported by Aftab Ho RT (R) at 20:46 scoates 08:46 PM Opsite applied scoates 08:47 PM Plavix, Effient or Brilinta given Yes scoates 08:47 PM Delay to floor No scoates 08:47 PM Family placed in consult room. scoates 08:48 PM ASA Class CLASS II- Mild systemic disease (i.e. well-controlled diabetes, hypertension, asthma, cigarette smoking) scoates 08:49 PM Lesion found in Distal Circumflex. Pre Stenosis: 50 Pre SISI Flow: scoates 08:49 PM Lesion found in 2nd Marginal. Pre Stenosis: 50 Pre SISI Flow: scoates 08:54 PM Report given to Mario CONNELLY Pt taken to 2N Room #9. 20:53 scoates 08:54 PM Patient out of room: 20:54 scoates Complications Complication None Hemodynamics Pressures Site Systolic/A Wave Diastolic/V Wave Mean AO 120 89 105 AO 130 86 107 LV 144 15 17 LV 144 16 17 AO 143 74 106 AO 147 80 107 AO 117 74 94 Post Procedure Information Blood Pressure: 160/94 mmHg Rhythm: Sr w/ bbb Post procedural instructions were given Closure Device Time Device Success/Fail 07/13/2018 8:47:00 PM Manual Compression - sheath to be pulled on 2N when appropriate Successful Site Checks Time Location Status Staff Sheath In? Note 08:46 PM Rt Groin No bleeding/hematoma Aftab Ho RT (R) Pulses Time Site Pre-Procedure Post-Procedure Note 8:42:00 PM Bilateral DP 2+ 8:43:00 PM Bilateral PT 1+ 07/13/2018 7:45:00 PM Bilateral DP 2+ 07/13/2018 7:45:00 PM Bilateral PT 1+ Updated by Yue Varner RN on 07/13/2018 8:59:50 PM electronically signed on 07/13/2018 9:00:22 PM with status of Final
[2018-07-13] MEDS ORDERED: *HR* Atropine Sulfate 1 MG/10 ML SYRINGE ONE (22:43)
[2018-07-13] MEDS ORDERED: 0.9 % Sodium Chloride 500 ML ONE (22:51)
[2018-07-14] MEDS ORDERED: Nitroglycerin 0.3 MG PATCH.TD24 TD SCH (07:30)
[2018-07-14] MEDS: Aspirin 81 MG TAB.CHEW PO SCH (08:44)
[2018-07-14] MEDS: *HR* Ticagrelor 90 MG TABLET PO SCH ×2 (08:44→21:03)
[2018-07-14 09:38] LABS: Basophils % 0.6 %; Eosinophils # 0.1 K/mcL (0.0-0.6); Eosinophils % 1.9 %; Hematocrit 35.8 % (35.3-44.9); Hemoglobin 11.8 g/dL (11.5-15.4); Immature Granulocytes % 0.3 % (0-4); Lymphocytes # 1.1 K/mcL (0.6-4.6); Lymphocytes % 15.6 %; Mean Corpuscular Hemoglobin 28.9 pg (28.0-33.3); Mean Corpuscular Volume 87.5 fL (83.0-100.0); Mean Platelet Volume 10.7 fL (9.4-12.4); Monocytes # 0.4 K/mcL (0.0-1.3); Monocytes % 5.9 %; Neutrophils # 5.2 K/mcL (1.6-8.9); Platelet Count 180 K/mcL (140-400); Red Blood Count 4.09 M/mcL (3.82-4.97); Red Cell Distribution Width 12.9 % (11.5-14.5); Segmented Neutrophils % 75.7 %
[2018-07-14 09:58] LABS: Calcium 9.7 mg/dL (8.6-10.3); Potassium 4.4 mEq/L (3.5-5.1)
[2018-07-14 09:59] LABS: Magnesium 1.4 mg/dL (1.6-2.6); Phosphorous 3.3 mg/dL (2.7-4.5)
--- NOTE | 2018-07-14 10:25 | Cardiology Progress Note ---
Date of Encounter: 07/14/18 Time of Encounter: 10:22 Assessment and Plan (1) NSTEMI (non-ST elevated myocardial infarction) Current Visit: Yes Status: Acute Patient presents with chest pain. Troponin 0.28, 0.96. EKG with new LBBB. TTE 02/2017- LVEF 65%. Normal LV chamber size, wall thickness and function. Mild left ventricular diastolic dysfunction. Normal right ventricular structure and function. Mild to moderately dilated left atrium. No evidence of a PFO with agitated saline contrast. Unable to estimate RVSP due to lack of TR jet. No cardiac source of emboli identified. Repeat LHC shows EF reduced at 25-30%. Severe segmental left ventricular systolic dysfunction. Normal right ventricular structure and function. Recommend LV contrast with definity to rule out LV thrombus and accurate LVEF. LHC completed last night and patient received PTCA and VI to the LAD and DX. Moderate non obstructive CAD remaining. Full report pending. Importance of DAPT with asa and brilinta uninterrupted for min one year reviewed with patient and she voiced understanding. Continue bb and statin. Cardiac rehab ordered. Repeat limited echo to r/o LV thrombus. On heparin gtt. If no concerning finding then cardiology will sign off. (2) Paroxysmal atrial fibrillation Current Visit: No Status: Chronic H/o atrial fibrillation. Patient recommended to have anticoagulation previously. She is not sure why she is not taking. Daughter states dfficulty affording meds. She remains NSR. Small runs PAF seen overnight. Continue bb. CHADS VASc = 7. She is high risk for CVA. Discussed care home AC indication, risk, and benefits. Patient considering. I will check [employer]. RX sent to [facility]. (3) Cardiomyopathy Current Visit: Yes Status: Acute Qualifiers: Cardiomyopathy type: ischemic Qualified Code(s): I25.5 - Ischemic cardiomyopathy (4) Acute systolic CHF (congestive heart failure) Current Visit: Yes Status: Acute TTE reviewed. EF decreased when compared to previous. Currently appears euvolemic. Kidney function stale. Change lopressor to toprol XL. Add aceI. Low sodium diet and daily weights. CHF education. Re-peat limited echo with definity ordered to r/o LV thrombus. Discussion w patient/family: The assessment and plan as outlined above was discussed with the patient and/or family members who expressed understanding and agreement. All questions were answered. Thank you for involving us in the care of your patient. Please call with any questions. Subjective Principal diagnosis: NSTEMI Interval history: Ms. Javed denies recurrent chest pain or SOB. She is resting quietly in bed. Daugter at bedside states that she is worried about cost of medications. cathead worker is consulted. We will also randle check eliquis and place co-pay cards on her chart. Objective Vital Signs, Last 4 Hours Temp Pulse Resp BP Pulse Ox 07/14/18 07:39 98.7 F 83 18 133/77 98 General: Conversant, No Apparent Distress HEENT: Atraumatic, Normocephaly, Mucus Membranes Moist Neck: No JVD, Normal carotid pulses Cardiac: Reg Rate and Rhythm, Normal S1 and S2, No Murmur Lungs: Normal Breath Sounds, No Wheeze, Rales, Rhonchi Neuro: Alert and responsive, No focal deficits noted Abdomen: Soft, Non-Tender Skin: No rashes noted on visualized skin Musculoskeletal: No Chest Wall Tenderness Extremities: No Clubbing, No Cyanosis, No Edema, Normal Pulses, Other (Right groin access site dressing D/I) Results 07/14/18 08:53 07/14/18 08:53 Lab Results 07/13/18 07/13/18 07/13/18 14:09 14:09 14:09 WBC 6.5 Hgb 13.2 Hct 39.3 Plt Count 188 INR 0.9 Sodium 132 L Potassium 5.6 H Chloride 103 Carbon Dioxide 17 L BUN 26 H Creatinine 1.56 H Glucose 365 H Calcium 10.4 H Magnesium Total Bilirubin 0.3 AST 15 ALT 7 Alkaline Phosphatase 54 Troponin I 0.28 H* 07/13/18 07/14/18 07/14/18 16:23 08:53 08:53 WBC 6.9 Hgb 11.8 Hct 35.8 Plt Count 180 INR Sodium 136 Potassium 4.4 Chloride 106 Carbon Dioxide 21 L BUN 25 H Creatinine 1.50 H Glucose 295 H Calcium 9.7 Magnesium Total Bilirubin AST ALT Alkaline Phosphatase Troponin I 0.96 H* 07/14/18 08:53 WBC Hgb Hct Plt Count INR Sodium Potassium Chloride Carbon Dioxide BUN Creatinine Glucose Calcium Magnesium 1.4 L Total Bilirubin AST ALT Alkaline Phosphatase Troponin I - Imaging and Cardiology Echo: report reviewed Cardiac cath: report reviewed - EKG Interpretation EKG results cardiology: personally reviewed Consult Discharge Plan - Plan Referrals: Delfina Middleton CNP [Primary Care Provider] - Prescriptions: Apixaban [Eliquis] 5 mg PO BID #60 tablet
[2018-07-14] MEDS ORDERED: D5% in Water 1,000 ML IVC PRN (12:33)
[2018-07-14] MEDS ORDERED: *HR* Dextrose 50 % in Water (Syg) 50 ML SYRINGE IVP PRN (12:33)
[2018-07-14] MEDS ORDERED: Dextrose Gel 15 GM/37.5 ML TUBE PO PRN ×2 (12:33)
[2018-07-14] MEDS: Metoprolol XL (24 HR) Succ 25 MG TAB.ER.24H PO SCH (12:42)
--- NOTE | 2018-07-14 12:57 | Internal Med Progress Note ---
Hospitalist Progress Note - Encounter Date of Encounter: 07/14/18 Time of Encounter: 08:36 - Subjective Interval History: Patient seen and examined this morning in respiratory. No acute overnight events. Denies new complaints. Denied any chest pain or shortness of breath. Denies any abdominal pain. Had LHC yesterday. - Exam Vitals: Temp Pulse Resp BP Pulse Ox 98.7 F 65 18 133/61 98 07/14/18 07:39 07/14/18 11:21 07/14/18 11:21 07/14/18 11:21 07/14/18 11:21 Exam: Constitutional: Vitals as noted. Conversant. No Apparent Distress. Respiratory : rales at base b/l, No accessory muscle use, rhonchi or wheezes Cardiovascular : RRR, +S1, +S2. no murmur, gallop, rubs. No chest wall tenderness GI/Abdominal : obese, Soft, Non-tender, Non-distended, normal bowel sounds, soft, no peritoneal signs. no orgenomegaly or mass appreciated. no hernia. Musculoskeletal: no deformity noted. no edema or cyanosis. warm extremities, pulses palpable and symmetrical in UE/LE. no calf tenderness. Neurological: AO X3, left-sided facial paralysis, able to frown had, normal speech, grossly normal motor and sensory exam. Skin: No skin rash, lesions or ulcers noted. - Assessment and Plan (1) NSTEMI (non-ST elevated myocardial infarction) Current Visit: Yes Status: Acute (2) Haji's palsy Current Visit: No Status: Acute (3) DVT prophylaxis Current Visit: No Status: Acute (4) Facial paralysis on left side Current Visit: No Status: Acute (5) Hypertension Current Visit: No Status: Acute (6) CKD (chronic kidney disease), stage III Current Visit: No Status: Chronic (7) Type 2 diabetes mellitus Current Visit: No Status: Chronic (8) Paroxysmal atrial fibrillation Current Visit: No Status: Chronic (9) HLD (hyperlipidemia) Current Visit: Yes Status: Acute (10) Hyperkalemia Current Visit: Yes Status: Acute - Summary of Assessment and Plan Summary of Assessment and Plan: NSTEMI - s/p LHC with PTCA and VI to LAD and DX - Started on aspirin and brilinta. To be continued for 1 year. - c/w atorvastatin and metoprolol Acute systolic heart failure - c/w low sodium diet. EF 25-30% - repeat echo with LV contrast to rule out LV thrombus. - c/w lisinopril - daily weights. Hypertension - Blood pressure stable - c/w metoprolol - continue home lisinopril. CKD stage III - Stable renal function Type 2 diabetes mellitus - Keep patient on Accu-Cheks and sliding scale - Get A1c for diabetes management on discharge. - Patient not taking any home medication - Will monitor insulin needs for today. Paroxysmal atrial fibrillation - High chadsvasc score. cardio recommended anticoagulation. eliquis being priced - currently on heparin drip. f/u ECHO to r/o cardiac thrombus. - cardiology following Hyperkalemia - resolved - Time Spent with Patient Total time spent is greater than 50% in coordination of care (as documented) at patient's floor/unit and/or counseling patient: Internal Medicine: Result - Labs CBC & Chem 7: 07/14/18 08:53 07/14/18 08:53 Labs: Short CBC 07/13/18 07/14/18 Range/Units 14:09 08:53 WBC 6.5 6.9 (4.3-11.1) K/mcL Hgb 13.2 11.8 (11.5-15.4) g/dL Hct 39.3 35.8 (35.3-44.9) % Plt Count 188 180 (140-400) K/mcL Neutrophils # 5.1 5.2 (1.6-8.9) K/mcL BMP 07/13/18 07/14/18 14:09 08:53 Sodium 132 L 136 Potassium 5.6 H 4.4 Chloride 103 106 Carbon Dioxide 17 L 21 L BUN 26 H 25 H Creatinine 1.56 H 1.50 H Glucose 365 H 295 H Calcium 10.4 H 9.7 Cardiac Enzymes 07/13/18 07/13/18 Range/Units 14:09 16:23 Troponin I 0.28 H* 0.96 H* (< 0.04) ng/mL Liver Function 07/13/18 Range/Units 14:09 Total Bilirubin 0.3 (0.3-1.0) mg/dL AST 15 (13-39) Units/L ALT 7 (7-52) Units/L Alkaline Phosphatase 54 (34-104) Units/L Albumin 4.5 (3.5-5.7) g/dL - ABG Interpretation ABG results: PT/INR, D-dimer PT 10.6 Seconds (9.4-12.1) 07/13/18 14:09 - Impressions Impressions Chest X-Ray 07/13/18 14:43 IMPRESSION: No acute abnormality. D/ / Iglesia Looney MD / Iglesia Looney MD Interpreting Provider: Iglesia Looney MD Echocardiogram Limited Views 07/13/18 17:55 Impressions: Limited Echo. LVEF 25-30%. Severe segmental left ventricular systolic dysfunction. Normal right ventricular structure and function. Recommend LV contrast with definity to rule out LV thrombus and accurate LVEF. Patient currently in chemical lab supervisor. Left Ventricular Wall Motion: Rest Echo Findings The apical anterior, mid anterior and apical lateral tello were hypokinetic. The apex, apical septal, mid anterior septal and basal anterior septal tello were dyskinetic. All other wall segments showed normal motion. Findings: Study Quality * Technically sub-optimal due to lack of LV contrast. ECG Findings * Sinus rhythm with BBB. Left Ventricle * LVEF 25-30%. * Severe segmental left ventricular systolic dysfunction. Right Ventricle * Normal right ventricular structure and function. Left Atrium * Normal left atrial size. Right Atrium * Normal right atrial size. Consult Discharge Plan - Plan Referrals: Delfina Middleton, PACKAGE LINE OPERATOR [Primary Care Provider] - Prescriptions: Apixaban [Eliquis] 5 mg PO BID #60 tablet (5) Hypertension Qualifiers: Qualified Code(s): I10 - Essential (primary) hypertension (7) Type 2 diabetes mellitus Qualifiers: Diabetes mellitus intermodal owner operator truck driver insulin use: with intermodal owner operator truck driver use Diabetes mellitus complication status: with kidney complications Diabetes mellitus complication detail: with chronic kidney disease Chronic kidney disease stage: stage 3 (moderate) Qualified Code(s): E11.22 - Type 2 diabetes mellitus with diabetic chronic kidney disease; N18.3 - Chronic kidney disease, stage 3 (moderate); Z79.4 - intermediate frame tender (current) use of insulin (9) HLD (hyperlipidemia) Qualifiers: Hyperlipidemia type: unspecified Qualified Code(s): E78.5 - Hyperlipidemia, unspecified
[2018-07-14] MEDS ORDERED: Perflutren Lipid Microsphere 1.3 ML in 0.9 % Sodium Chloride 8.7 ML IVP ONE (13:21)
[2018-07-14] MEDS: Insulin LISPRO 300 UNITS/3 ML VIAL SQ SCH ×2 (14:09→17:17)
[2018-07-14 14:50] LABS: Estimated Average Glucose 223 mg/dl; Hemoglobin A1C 9.4 %
[2018-07-14] MEDS: Heparin 25,000 UNIT/500 ML D5W 25,000 UNIT/500 ML BAG IVC SCH (15:10)
[2018-07-14] MEDS ORDERED: Acetaminophen 325 MG TABLET PO PRN (15:29)
[2018-07-14] MEDS: Apixaban 5 MG TABLET PO SCH (18:34)
[2018-07-14] MEDS ORDERED: Insulin LISPRO 300 UNITS/3 ML VIAL SQ SCH (21:00)
--- NOTE | 2018-07-14 21:11 | Electrocardiograph Report ---
[address] [address] Test Date: 2018-07-13 Pat Name: Doris Javed Department: [id number] Room: 2N09 Gender: F Information Systems Administrator: : 1940 Requested By: Caden Mckenzie Order Number: [id number] Reading MD: Radha Lopez Measurements Intervals [place] Rate: 93 P: 61 [place]: 157 QRS: -59 QRSD: 133 T: 104 QT: 371 QTc: 462 Interpretive Statements Sinus rhythm Left axis deviation Left bundle branch block Electronically Signed On 07-14-2018 21:09:35 EST by Radha Lopez
--- NOTE | 2018-07-14 21:31 | Electrocardiograph Report ---
[address] [address] Test Date: 2018-07-13 Pat Name: Doris Javed Department: [id number] Room: 2N09 Gender: F Rum Processing Operator: : 1940 Requested By: Deisy Blanchard Order Number: [id number] Reading MD: Radha Lopez Measurements Intervals [place] Rate: 94 P: 61 [place]: 155 QRS: -68 QRSD: 138 T: 95 QT: 377 QTc: 472 Interpretive Statements Sinus rhythm Left axis deviation Left bundle branch block Electronically Signed On 07-14-2018 21:29:43 EST by Radha Lopez
[2018-07-15] MEDS: Aspirin 81 MG TAB.CHEW PO SCH (08:45)
[2018-07-15] MEDS: Metoprolol XL (24 HR) Succ 25 MG TAB.ER.24H PO SCH (08:46)
[2018-07-15] MEDS: *HR* Ticagrelor 90 MG TABLET PO SCH (08:46)
[2018-07-15] MEDS: Apixaban 5 MG TABLET PO SCH (08:46)
[2018-07-15] MEDS: Insulin LISPRO 300 UNITS/3 ML VIAL SQ SCH ×2 (08:48→12:11)
[2018-07-15 11:54] VITALS: BP 131/72
--- NOTE | 2018-07-15 12:33 | Electrocardiograph Report ---
[place] [address] Test Date: 2018-07-15 Pat Name: Doris Javed Department: 110 Room: 2N09 Gender: F Geophysical Data Technician: ZEKE : 1940 Requested By: Erik Stephens Order Number: [id number] Reading MD: Dandy Mcginnis Measurements Intervals [place] Rate: 64 P: 47 [place]: 162 QRS: -40 QRSD: 146 T: 150 QT: 450 QTc: 459 Interpretive Statements SINUS RHYTHM MARKED LEFT AXIS DEVIATION LEFT BUNDLE BRANCH BLOCK Electronically Signed On 07-15-2018 12:32:06 EST by Dandy Mcginnis
--- NOTE | 2018-07-15 12:42 | Cardiology Progress Note ---
Date of Encounter: 07/15/18 Time of Encounter: 10:40 Assessment and Plan (1) NSTEMI (non-ST elevated myocardial infarction) Current Visit: Yes Status: Acute Patient presents with chest pain/ ACS. Troponin 0.28, 0.96. EKG with new LBBB. TTE 02/2017- LVEF 65%. Normal LV chamber size, wall thickness and function. Mild left ventricular diastolic dysfunction. Normal right ventricular structure and function. Mild to moderately dilated left atrium. No evidence of a PFO with agitated saline contrast. Unable to estimate RVSP due to lack of TR jet. No cardiac source of emboli identified. Repeat LHC shows EF reduced at 25-30%. Severe segmental left ventricular systolic dysfunction. Normal right ventricular structure and function. Repeat limited echo with no thrombus. LHC completed and patient received PTCA and VI to the LAD and DX. Moderate non obstructive CAD remaining. Full report pending. Importance of DAPT with asa and brilinta uninterrupted for min one year reviewed with patient and she voiced understanding. Continue bb and statin. Cardiac rehab ordered. Out-pt f/u will be coordinated. Cardiology will sign off. (2) Paroxysmal atrial fibrillation Current Visit: No Status: Chronic H/o atrial fibrillation. Patient recommended to have anticoagulation previously. She is not sure why she is not taking. Daughter states difficulty affording meds . She remains NSR. Small runs PAF seen overnight. Continue bb. CHADS VASc = 7. She is high risk for CVA. Discussed intermediate AC indication, risk, and benefits. Eliquis cost 45$. Discussed with patent and son. Patient agrees to randle, son is willing to cover medication cost. (3) Cardiomyopathy Current Visit: Yes Status: Acute Qualifiers: Cardiomyopathy type: ischemic Qualified Code(s): I25.5 - Ischemic cardiomyopathy (4) Acute systolic CHF (congestive heart failure) Current Visit: Yes Status: Acute TTE reviewed. EF decreased when compared to previous. Currently appears euvolemic. Kidney function stale. Continue toprol XL and aceI. Low sodium diet and daily weights. CHF education. Discussion w patient/family: The assessment and plan as outlined above was discussed with the patient and/or family members who expressed understanding and agreement. All questions were answered. Thank you for involving us in the care of your patient. Please call with any questions. Subjective Principal diagnosis: NSTEMI Interval history: Ms. Javed denies recurrent chest pain or SOB. She is resting quietly in bed. Daugter at bedside states that she is worried about cost of medications. blow off worker is consulted. We will also randle check eliquis and place co-pay cards on her chart. Objective Vital Signs, Last 4 Hours Temp Pulse Resp BP 07/15/18 11:51 98.1 F 65 18 131/72 General: Conversant, No Apparent Distress HEENT: Atraumatic, Normocephaly, Mucus Membranes Moist Neck: No JVD, Normal carotid pulses Cardiac: Reg Rate and Rhythm, Normal S1 and S2, No Murmur Lungs: Normal Breath Sounds, No Wheeze, Rales, Rhonchi Neuro: Alert and responsive, No focal deficits noted Abdomen: Soft, Non-Tender Skin: No rashes noted on visualized skin Musculoskeletal: No Chest Wall Tenderness Extremities: No Clubbing, No Cyanosis, No Edema, Normal Pulses Results 07/14/18 08:53 07/14/18 08:53 - Imaging and Cardiology Echo: report reviewed Cardiac cath: report reviewed - EKG Interpretation EKG results cardiology: personally reviewed Consult Discharge Plan - Plan Instructions: Chest Pain (DC), Meal Planning with Diabetes Exchanges (DC) Additional Instructions: RISK FACTORS: STOP SMOKING: If you smoke, STOP. Smoking or tobacco use significantly increases your risk of heart disease because nicotine causes the arteries to narrow or constrict. It also causes fats to stick to the artery. Your chances of having a heart attack are greatly increased if you continue to smoke. For more information, call the education line for smoking cessation 1-318-YVUAUXO EAT A LOW FAT/CHOLESTEROL/SODIUM DIET: This diet may help reduce your chances of having a heart attack. LIFTING: Avoid lifting anything more than 10 pounds for 5-7 days Prior to straining, laughing, sneezing and/or coughing, apply manual pressure directly over insertion site. ACTIVITY: You may walk or climb stairs as tolerated You can resume sexual activity as tolerated In general, you are encouraged to engage in a minimum of 30 minutes or more of moderate intensity physical activity, such as brisk walking, daily or at least 3-4 times weekly BATHING Do not submerge the site into water (bath tub, hot tub, swimming pool) for 1 week. This can be a source for infection into the blood stream. You may shower after 24 hours SITE CARE: After 24 hours, you may remove the dressing and leave the site open to air. Keep the site clean and dry. Clean gently and pat dry. You can expect bruising and tenderness that gradually resolve within a week or two. Return to work as instructed per your physician Resume driving as instructed per physician Keep all scheduled follow up appointments Resume medications as instructed IMPORTANT: If prescribed a Platelet Aggregation Inhibitor such as, Plavix, Brilinta or Effient: Duration of therapy is minimum one year These medications are often used in combination with Aspirin in prevention of future heart attacks Never discontinue unless consult with your Functional Analyst STROKE (CVA) Risk factors for a stroke are: Age, cigarette smoking, diabetes, excessive alcohol consumption, family history, high blood pressure, overweight, physical inactivity, prior stroke, heart attack, diagnosis of carotid artery stenosis or other artery disease. Warning signs: Sudden numbness or weakness of the face, arm or leg; especially on one side of the body, sudden confusion, trouble speaking or understanding, sudden trouble seeing in one or both eyes, sudden trouble walking, dizziness, loss of balance or coordination, sudden severe headache with no cause. Call 911 or go to the Emergency Room. CONGESTIVE HEART FAILURE: If you have been diagnosed with Congestive Heart Failure (CHF) and your symptoms return, make an appointment with your physician Weigh yourself daily. Notify your physician if you have a weight gain of two or more pounds in one day or five or more pounds in one week. If you experience any difficulty breathing, please call 911 BLEEDING: Although the risk of bleeding is minimal, it can happen. If you have any bleeding from the site, apply firm pressure above the puncture site for 10-15 minutes. If the bleeding does not stop, continue manual pressure and call 911 Contact your physician if: You develop a fever greater than 101 degrees Fahrenheit Your site becomes reddened or has any drainage You have an increase in pain or burning at the site or if a large knot forms at the site. If you experience chest pain, shortness of breath, dizziness, or extreme tiredness, stop the activity and rest. Please notify your physicians office if you experience any of these symptoms and they are not relieved by rest please call 911! Referrals: Delfina Middleton, LOADING AND UNLOADING SUPERVISOR [Primary Care Provider] - 07/25/18 2:15 pm Deisy Blanchard [Partnered Physician] - (Office will call patient will ap pointment) Prescriptions: Apixaban [Eliquis] 5 mg PO BID #60 tablet Aspirin Enteric Coated [Aspirin EC] 81 mg PO DAILY 30 Days #30 tablet. Atorvastatin [Lipitor] 40 mg PO HS 30 Days #30 tablet Glimepiride [Amaryl] 2 mg PO 0800 30 Days #30 tablet Metoprolol XL (24 HR) Succ [Toprol Xl] 25 mg PO DAILY 30 Days #30 tab.er.24h Ticagrelor [Brilinta] 90 mg PO BID 30 Days #60 tablet
--- NOTE | 2018-07-15 13:02 | Discharge Summary ---
- NOTES TO OUTPATIENT PROVIDER Notes to Outpatient Provider: Patient was started on glimepiride for diabetes with A1c of 9.4. Not started on insulin as compliance might be an issue for patient. please discuss and consider insulin if blood glucose does not get controlled for better risk factor management given her coronary artery disease. Patient also discharged on aspirin, Brillinta, Eliquis, lisinopril and metoprolol. Orders not resulted at time of discharge: Pending orders 07/13/18 20:46 ECG 12 lead ECG [ECG] Routine 07/14/18 07:00 ECG 12 lead ECG [ECG] Routine Date of Encounter: 07/15/18 Time of Encounter: 12:54 - Discharge Diagnosis (1) NSTEMI (non-ST elevated myocardial infarction) Priority: Primary Status: Acute (2) Haji's palsy Priority: Secondary Status: Acute (3) DVT prophylaxis Priority: Secondary Status: Acute (4) Facial paralysis on left side Priority: Secondary Status: Acute (5) Hypertension Priority: Secondary Status: Acute Qualifiers: Qualified Code(s): I10 - Essential (primary) hypertension (6) CKD (chronic kidney disease), stage III Priority: Secondary Status: Chronic (7) Type 2 diabetes mellitus Priority: Secondary Status: Chronic Qualifiers: Diabetes mellitus shelter insulin use: with brick catcher use Diabetes mellitus complication status: with kidney complications Diabetes mellitus complication detail: with chronic kidney disease Chronic kidney disease stage: stage 3 (moderate) Qualified Code(s): E11.22 - Type 2 diabetes mellitus with diabetic chronic kidney disease; N18.3 - Chronic kidney disease, stage 3 (moderate); Z79.4 - application engineer (current) use of insulin (8) Paroxysmal atrial fibrillation Priority: Primary Status: Chronic (9) HLD (hyperlipidemia) Priority: Secondary Status: Acute Qualifiers: Hyperlipidemia type: unspecified Qualified Code(s): E78.5 - Hyperlipidemia, unspecified (10) Hyperkalemia Priority: Secondary Status: Acute Hospital course: Ms. Javed is a 77 year old female past medical history of HTN, CK-MB, paroxysmal A. fib came in with complain of chest pain was found to have NSTEMI. Patient was started on heparin drip and underwent cardiac catheterization. Patient had PTCA and VI to LAD and DX. Patient with EF of 25-30%. Repeat echocardiogram did not show any LV thrombus. Given the risk factor patient was started on Except then for paroxysmal A. fib. Patient was also started on glimepiride on discharge for uncontrolled diabetes as patient not taking any medication at home. Patient will be discharged on aspirin and Brillinta for CAD with stenting. Patient also started on Toprol-XL for systolic heart failure. Patient would be discharged home with home health as patient might have difficulty with compliance as well as occupational therapy. Patient did not have any complication after LHC. Patient would need close follow-up with PCP and cardiology Discharge discussed with: patient, family, nurse - Time Spent with Patient Total time spent providing and/or coordinating discharge services: Greater than 30 minutes (42) - Discharge Medications Prescriptions: Apixaban [Eliquis] 5 mg PO BID #60 tablet Aspirin Enteric Coated [Aspirin EC] 81 mg PO DAILY 30 Days #30 tablet. Atorvastatin [Lipitor] 40 mg PO HS 30 Days #30 tablet Glimepiride [Amaryl] 2 mg PO 0800 30 Days #30 tablet Metoprolol XL (24 HR) Succ [Toprol Xl] 25 mg PO DAILY 30 Days #30 tab.er.24h Ticagrelor [Brilinta] 90 mg PO BID 30 Days #60 tablet Home Medications: Lisinopril [Zestril] 5 mg PO DAILY tablet 03/15/17 [Rx] Esomeprazole Magnesium [Nexium] 40 mg PO DAILY 07/13/18 [History] Apixaban [Eliquis] 5 mg PO BID #60 tablet 07/14/18 [Rx] Aspirin Enteric Coated [Aspirin EC] 81 mg PO DAILY 30 Days #30 tablet. 07/15/18 [Rx] Atorvastatin [Lipitor] 40 mg PO HS 30 Days #30 tablet 07/15/18 [Rx] Glimepiride [Amaryl] 2 mg PO 0800 30 Days #30 tablet 07/15/18 [Rx] Metoprolol XL (24 HR) Succ [Toprol Xl] 25 mg PO DAILY 30 Days #30 tab.er.24h 07/15/18 [Rx] Ticagrelor [Brilinta] 90 mg PO BID 30 Days #60 tablet 07/15/18 [Rx] Allergies/Adverse Reactions: Allergy/AdvReac Type Severity Reaction Status Date / Time acetaminophen Allergy Rash Verified 09/19/17 02:19 [From Darvocet-N] penicillin V Allergy See Verified 07/13/18 21:32 Comments propoxyphene Allergy Rash Verified 07/13/18 21:32 [From Darvocet-N] Tetanus Vaccines and Toxoid Allergy See Verified 03/09/17 02:19 Comments tramadol [From Ultram] Allergy Rash Verified 07/13/18 21:32 Date of admission: 07/13/18 20:40 Primary care physician: Delfina Middleton CNP Consults: 07/13/18 16:21 Consult to Cardiac Rehabilitation-Phase1 [CONS] Stat Comment: Reason for Consult: NSTEMI Call Completed: No 07/13/18 17:11 Consult to Cardiology [CONS] Routine Comment: Consulting Provider: Cardiology Marian Reason for Consult: NSTEMI Call Completed: No 07/13/18 20:46 Consult to Cardiac Rehabilitation-Phase1 [CONS] Routine Comment: Reason for Consult: AMI Call Completed: Yes Consult to Nurse Navigator [CONS] Routine Comment: 07/13/18 21:33 Consult to Pony Worker [CONS] Routine Reason for SW Consult: difficulty paying for prescriptions 07/14/18 15:08 Consult to Physical Therapy [CONS] Routine Comment: Evaluate, develop and implement POC Reason for Consult: unsteady gait Does patient have active BEDREST order?: No Is patient medically & hemodynamically stable?: Yes Patient assessed for mobility or mobilized this visit?: Yes 07/14/18 15:09 Consult to Occupational Therapy [CONS] Routine Comment: Evaluate, develop and implement POC Reason for Consult: unsteady gait Does patient have active BEDREST order?: No Is patient medically & hemodynamically stable?: Yes Patient assessed for mobility or mobilized this visit?: Yes Discharging clinician: Luis A Betancourt - Constitutional Vitals: Temp Pulse Resp BP Pulse Ox 98.1 F 65 18 131/72 94 07/15/18 11:51 07/15/18 11:51 07/15/18 11:51 07/15/18 11:51 07/15/18 07:43 Exam: Constitutional: Vitals as noted. Conversant. No Apparent Distress. Respiratory : CTAB, No accessory muscle use, rhonchi or wheezes Cardiovascular : RRR, +S1, +S2. no murmur, gallop, rubs. No chest wall tenderness GI/Abdominal : obese, Soft, Non-tender, Non-distended, normal bowel sounds, soft, no peritoneal signs. no orgenomegaly or mass appreciated. no hernia. Musculoskeletal: no deformity noted. no edema or cyanosis. warm extremities, pulses palpable and symmetrical in UE/LE. no calf tenderness. Neurological: AO X3, left-sided facial paresis, able to frown had, normal speech, grossly normal motor and sensory exam. Skin: No skin rash, lesions or ulcers noted. - Patient Status Disposition: Home, Self-Care Condition: Good - Discharge Instructions Follow Up With: Delfina Middleton CNP [Primary Care Provider] - 07/25/18 2:15 pm Deisy Blanchard [Partnered Physician] - (Office will call patient will appointment) - Diet and Activity Activity: as per physical therapy
--- NOTE | 2018-07-15 13:15 | Physician Discharge Referral ---
Home Health/Hosp Referral Info Transfer to: Home Health - Diagnosis (1) NSTEMI (non-ST elevated myocardial infarction) Status: Acute (2) Haji's palsy Status: Acute (3) DVT prophylaxis Status: Acute (4) Facial paralysis on left side Status: Acute (5) Hypertension Status: Acute (6) CKD (chronic kidney disease), stage III Status: Chronic (7) Type 2 diabetes mellitus Status: Chronic (8) Paroxysmal atrial fibrillation Status: Chronic (9) HLD (hyperlipidemia) Status: Acute (10) Hyperkalemia Status: Acute - Respiratory Orders Smoking Cessation: Smoking cessation has been advised. For more information, call the [place] Tobacco Quit Line at 0-335-MZGXNOW. - Services Needed Following services are medically necessary services: Physical Therapy, Occupational Therapy - Transfer Medications Prescriptions: Apixaban [Eliquis] 5 mg PO BID #60 tablet Aspirin Enteric Coated [Aspirin EC] 81 mg PO DAILY 30 Days #30 tablet. Atorvastatin [Lipitor] 40 mg PO HS 30 Days #30 tablet Glimepiride [Amaryl] 2 mg PO 0800 30 Days #30 tablet Metoprolol XL (24 HR) Succ [Toprol Xl] 25 mg PO DAILY 30 Days #30 tab.er.24h Ticagrelor [Brilinta] 90 mg PO BID 30 Days #60 tablet Home Medications: Lisinopril [Zestril] 5 mg PO DAILY tablet 03/15/17 [Rx] Esomeprazole Magnesium [Nexium] 40 mg PO DAILY 07/13/18 [History] Apixaban [Eliquis] 5 mg PO BID #60 tablet 07/14/18 [Rx] Aspirin Enteric Coated [Aspirin EC] 81 mg PO DAILY 30 Days #30 tablet. 07/15/18 [Rx] Atorvastatin [Lipitor] 40 mg PO HS 30 Days #30 tablet 07/15/18 [Rx] Glimepiride [Amaryl] 2 mg PO 0800 30 Days #30 tablet 07/15/18 [Rx] Metoprolol XL (24 HR) Succ [Toprol Xl] 25 mg PO DAILY 30 Days #30 tab.er.24h 07/15/18 [Rx] Ticagrelor [Brilinta] 90 mg PO BID 30 Days #60 tablet 07/15/18 [Rx] Allergies/Adverse Reactions: Allergy/AdvReac Type Severity Reaction Status Date / Time acetaminophen Allergy Rash Verified 03/09/17 02:19 [From Darvocet-N] penicillin V Allergy See Verified 07/13/18 21:32 Comments propoxyphene Allergy Rash Verified 07/13/18 21:32 [From Darvocet-N] Tetanus Vaccines and Toxoid Allergy See Verified 03/09/17 02:19 Comments tramadol [From Ultram] Allergy Rash Verified 07/13/18 21:32 Certification: Further, I certify that my clinical findings support that this patient is homebound (i.e. absences from home require considerable and taxing effort and are for medical reasons or muslim services or infrequently or short duration when for other reasons) because: Homebound Reason: Patient requires assistance of a person or device to safely leave home Attestation: My signature below is to certify that this patient is under my care and that I, or nurse practitioner, or a physician's support assistant working with me, has a [id number] encounter with this patient.
== END 2018-07-15 14:22 | disposition home or self-care (01) | DRG 246 ==
LOC: EMEROOARM 13:26 → 2NNU 19:30 → SUATTDRO 20:40
PROVIDERS: ADMIT Hospitalist; ATTEND Internal Medicine

== ENCOUNTER 2019-04-26 17:58 | Observation (INO) ==
[2019-04-26] MEDS: Aspirin 81 MG TAB.CHEW PO ONE ×2 (18:23→18:25)
[2019-04-26 18:37] LABS: Basophils % 0.5 %; Eosinophils # 0.1 K/mcL (0.0-0.6); Eosinophils % 2.3 %; Hematocrit 39.7 % (35.3-44.9); Immature Granulocytes % 0.2 % (0-4); Lymphocytes # 1.3 K/mcL (0.6-4.6); Lymphocytes % 21.6 %; Mean Corpuscular HGB Conc 35.3 g/dL (31.6-35.5); Mean Platelet Volume 10.5 fL (9.4-12.4); Monocytes # 0.4 K/mcL (0.0-1.3); Monocytes % 6.4 %; Neutrophils # 4.3 K/mcL (1.6-8.9); Platelet Count 180 K/mcL (140-400); Red Blood Count 4.67 M/mcL (3.82-4.97); Red Cell Distribution Width 12.5 % (11.5-14.5); White Blood Count 6.2 K/mcL (4.3-11.1)
[2019-04-26 18:39] LABS: Prothrombin Time 10.8 Seconds (9.4-12.1)
[2019-04-26 18:42] LABS: Activated Partial Thrombo Time 25.4 Seconds (26.0-36.0)
[2019-04-26 18:52] LABS: Calcium 9.4 mg/dL (8.6-10.3); Potassium 4.1 mEq/L (3.5-5.1)
[2019-04-26 18:53] LABS: Troponin I 0.03 ng/mL (< 0.04)
[2019-04-26] MEDS ORDERED: Perflutren Lipid Microsphere 1.3 ML in 0.9 % Sodium Chloride 8.7 ML IVP ONE (20:29)
[2019-04-27] MEDS ORDERED: Nitroglycerin 0.4 MG TAB.SUBL SL PRN (01:08)
[2019-04-27] MEDS ORDERED: *HR* Dextrose 50 % in Water (Syg) 50 ML SYRINGE IVP PRN (01:09)
[2019-04-27] MEDS ORDERED: D5% in Water 1,000 ML IVC PRN (01:09)
[2019-04-27] MEDS ORDERED: Dextrose Gel 15 GM/37.5 ML TUBE PO PRN ×2 (01:09)
[2019-04-27] MEDS ORDERED: Naloxone 0.4 MG/ML INJ IVP PRN (01:14)
[2019-04-27] MEDS ORDERED: Ondansetron 4 MG/2 ML VIAL IVP PRN (01:14)
[2019-04-27 02:19] LABS: Prothrombin Time 10.8 Seconds (9.4-12.1)
[2019-04-27 02:22] LABS: Hemoglobin 13.1 g/dL (11.5-15.4); Mean Corpuscular HGB Conc 34.5 g/dL (31.6-35.5); Mean Corpuscular Hemoglobin 29.6 pg (28.0-33.3); Mean Platelet Volume 10.8 fL (9.4-12.4); Platelet Count 157 K/mcL (140-400); Red Blood Count 4.42 M/mcL (3.82-4.97); Red Cell Distribution Width 12.5 % (11.5-14.5); White Blood Count 5.5 K/mcL (4.3-11.1)
[2019-04-27 02:41] LABS: BUN/Creatinine Ratio 12 (6-26); Blood Urea Nitrogen 22 mg/dL (8-23); Calcium 9.6 mg/dL (8.6-10.3); Carbon Dioxide 25 mEq/L (23-29); Chloride 102 mEq/L (98-107); Chol/HDL Ratio 8.1 (0-4.9); Cholesterol 308 mg/dL (< 200); Glucose 376 mg/dL (70-105); HDL Cholesterol 38 mg/dL (40-59); Magnesium 1.5 mg/dL (1.6-2.6); Osmolality,Calculated 303 (280-300); Potassium 4.2 mEq/L (3.5-5.1); Sodium 137 mEq/L (136-145); Triglycerides 460 mg/dL (< 150); eGFR For African Americans 34 (> 60); eGFR For Non-African Americans 28 (> 60)
[2019-04-27] MEDS: Insulin LISPRO 300 UNITS/3 ML VIAL SQ SCH ×4 (05:48→12:26)
[2019-04-27] MEDS ORDERED: Aspirin Enteric Coated 81 MG Tablet PO SCH (09:00)
[2019-04-27 09:23] LABS: Estimated Average Glucose 235 mg/dl
[2019-04-27] MEDS ORDERED: Apixaban 5 MG TABLET PO SCH ×2 (10:41→21:00)
[2019-04-27 11:04] VITALS: BP 157/83
[2019-04-27] MEDS ORDERED: Insulin LISPRO 300 UNITS/3 ML VIAL SQ SCH (21:00)
[2019-04-28] MEDS ORDERED: Metoprolol XL (24 HR) Succ 25 MG TAB.ER.24H PO SCH (09:00)
== END 2019-04-27 14:43 | disposition home or self-care (01) ==
LOC: 3BNU 17:58 → EMEROOARM 17:58 → SUATTDRO 19:34 → 3BNU 20:19
PROVIDERS: ADMIT Internal Medicine; ATTEND Family Medicine

== ENCOUNTER 2019-07-10 09:59 | Observation (INO) ==
[2019-07-10 10:25] LABS: Basophils % 0.3 %; Eosinophils % 0.5 %; Hematocrit 36.2 % (35.3-44.9); Hemoglobin 12.2 g/dL (11.5-15.4); Immature Granulocytes % 0.3 % (0-4); Lymphocytes % 14.9 %; Mean Corpuscular HGB Conc 33.7 g/dL (31.6-35.5); Mean Corpuscular Hemoglobin 29.2 pg (28.0-33.3); Mean Corpuscular Volume 86.6 fL (83.0-100.0); Mean Platelet Volume 10.2 fL (9.4-12.4); Monocytes # 0.3 K/mcL (0.0-1.3); Monocytes % 5.1 %; Neutrophils # 5.2 K/mcL (1.6-8.9); Platelet Count 118 K/mcL (140-400); Red Blood Count 4.18 M/mcL (3.82-4.97); Red Cell Distribution Width 13.7 % (11.5-14.5); Segmented Neutrophils % 78.9 %; White Blood Count 6.6 K/mcL (4.3-11.1)
[2019-07-10 10:47] LABS: Calcium 7.7 mg/dL (8.6-10.3); Potassium 2.8 mEq/L (3.5-5.1)
[2019-07-10 10:52] LABS: Troponin I 0.12 ng/mL (< 0.04)
[2019-07-10] MEDS ORDERED: cefTRIAXone 1,000 MG in Water for inj. (sterile) 10 ML IVP ONE (10:54)
[2019-07-10] MEDS ORDERED: Azithromycin 500 MG in 0.9 % Sodium Chloride 250 ML IVPB ONE (10:55)
[2019-07-10] MEDS ORDERED: Ondansetron 4 MG/2 ML VIAL IVP PRN (11:07)
[2019-07-10] MEDS ORDERED: Naloxone 0.4 MG/ML INJ IVP PRN (11:07)
[2019-07-10] MEDS ORDERED: *HR* Dextrose 50 % in Water (Syg) 50 ML SYRINGE IVP PRN (11:10)
[2019-07-10] MEDS ORDERED: D5% in Water 1,000 ML IVC PRN (11:10)
[2019-07-10] MEDS ORDERED: Dextrose Gel 15 GM/37.5 ML TUBE PO PRN ×2 (11:10)
[2019-07-10 11:55] LABS: Estimated Average Glucose 209 mg/dl
[2019-07-10] MEDS ORDERED: Insulin DETEMIR 100 UNIT/ML X5UNITS SQ ONE (11:56)
[2019-07-10] MEDS ORDERED: Ipratropium/Albuterol Neb 3 ML IH PRN (12:07)
[2019-07-10] MEDS: Insulin LISPRO 300 UNITS/3 ML VIAL SQ SCH ×2 (12:52→17:14)
[2019-07-10] MEDS: Furosemide 20 MG/2 ML VIAL IVP SCH ×2 (12:52→17:13)
[2019-07-10] MEDS: Budesonide/Formoterol 160/4.5 1 PUFF INH IH SCH ×2 (15:20→20:40)
[2019-07-10] MEDS: Potassium Chloride Elixir 20 MEQ/15 ML UDC PO SCH ×2 (17:13→20:23)
[2019-07-10] MEDS: Apixaban 5 MG TABLET PO SCH (20:23)
[2019-07-10] MEDS ORDERED: Insulin LISPRO 300 UNITS/3 ML VIAL SQ SCH (21:00)
[2019-07-10] MEDS ORDERED: Acetaminophen 325 MG TABLET PO ONE (21:18)
[2019-07-11 00:18] LABS: Hematocrit 35.1 % (35.3-44.9); Hemoglobin 11.8 g/dL (11.5-15.4); Immature Granulocytes % 0.5 % (0-4); Lymphocytes # 0.3 K/mcL (0.6-4.6); Lymphocytes % 8.5 %; Mean Corpuscular HGB Conc 33.6 g/dL (31.6-35.5); Mean Corpuscular Volume 86.2 fL (83.0-100.0); Mean Platelet Volume 10.9 fL (9.4-12.4); Monocytes # 0.2 K/mcL (0.0-1.3); Monocytes % 4.5 %; Neutrophils # 3.3 K/mcL (1.6-8.9); Platelet Count 159 K/mcL (140-400); Red Blood Count 4.07 M/mcL (3.82-4.97); Red Cell Distribution Width 13.4 % (11.5-14.5); Segmented Neutrophils % 86.5 %; White Blood Count 3.8 K/mcL (4.3-11.1)
[2019-07-11 00:31] LABS: Calcium 8.1 mg/dL (8.6-10.3); Magnesium 0.6 mg/dL (1.6-2.6); Phosphorous 1.2 mg/dL (2.7-4.5)
[2019-07-11 05:20] LABS: Adenovirus Not Detected (Not Detect); Coronavirus 229E Not Detected (Not Detect); Coronavirus HKU1 Not Detected (Not Detect); Coronavirus NL63 Not Detected (Not Detect); Coronavirus OC43 Not Detected (Not Detect); Human Metapneumovirus Not Detected (Not Detect); Human Rhinovirus/Enterovirus Not Detected (Not Detect); Influenza A Subtype 2009 H1 Not Detected (Not Detect); Influenza B Not Detected (Not Detect); Parainfluenza Virus 1 Not Detected (Not Detect); Parainfluenza Virus 2 Not Detected (Not Detect); Parainfluenza Virus 3 Not Detected (Not Detect); Parainfluenza Virus 4 Not Detected (Not Detect); Respiratory Syncytial Virus Not Detected (Not Detect)
[2019-07-11 05:21] LABS: Bordetella Pertussis Not Detected (Not Detect); Chlamydophila pneumoniae Not Detected (Not Detect); Mycoplasma pneumoniae Not Detected (Not Detect)
[2019-07-11] MEDS: Budesonide/Formoterol 160/4.5 1 PUFF INH IH SCH (07:16)
[2019-07-11 08:21] VITALS: BP 150/84
[2019-07-11] MEDS: Apixaban 5 MG TABLET PO SCH (08:53)
[2019-07-11] MEDS: Furosemide 20 MG/2 ML VIAL IVP SCH (08:53)
[2019-07-11] MEDS ORDERED: Azithromycin 500 MG in 0.9 % Sodium Chloride 250 ML IVPB SCH ×2 (09:00)
[2019-07-11] MEDS ORDERED: cefTRIAXone 1,000 MG in 0.9 % Sodium Chloride Mini Bag 100 ML IVPB SCH (09:00)
[2019-07-11] MEDS ORDERED: Azithromycin 250 MG TABLET PO SCH (09:00)
[2019-07-11] MEDS ORDERED: cefTRIAXone 1,000 MG in Water for inj. (sterile) 10 ML IVP SCH (09:00)
[2019-07-11] MEDS ORDERED: Insulin DETEMIR 100 UNIT/ML X5UNITS SQ SCH (09:00)
[2019-07-11] MEDS ORDERED: Metoprolol XL (24 HR) Succ 25 MG TAB.ER.24H PO SCH (09:00)
[2019-07-11] MEDS: Insulin LISPRO 300 UNITS/3 ML VIAL SQ SCH ×2 (09:12→12:43)
== END 2019-07-11 13:20 | disposition home or self-care (01) ==
LOC: EMEROOARM 09:59 → 2ANU 09:59
PROVIDERS: ADMIT Student in an Organized Health Care Education/Training Program; ATTEND Student in an Organized Health Care Education/Training Program

== ENCOUNTER 2019-08-25 12:07 | Observation (INO) ==
[2019-08-25 13:29] LABS: Basophils % 0.3 %; Eosinophils % 0.5 %; Hematocrit 35.9 % (35.3-44.9); Hemoglobin 11.5 g/dL (11.5-15.4); Immature Granulocytes % 0.3 % (0-4); Lymphocytes # 0.6 K/mcL (0.6-4.6); Lymphocytes % 7.1 %; Mean Corpuscular Hemoglobin 28.4 pg (28.0-33.3); Mean Corpuscular Volume 88.6 fL (83.0-100.0); Mean Platelet Volume 10.4 fL (9.4-12.4); Monocytes # 0.3 K/mcL (0.0-1.3); Monocytes % 4.3 %; Neutrophils # 6.9 K/mcL (1.6-8.9); Platelet Count 149 K/mcL (140-400); Red Blood Count 4.05 M/mcL (3.82-4.97); Red Cell Distribution Width 12.4 % (11.5-14.5); Segmented Neutrophils % 87.5 %; White Blood Count 7.9 K/mcL (4.3-11.1)
[2019-08-25 13:49] LABS: Troponin I 0.07 ng/mL (< 0.04)
[2019-08-25 13:55] LABS: Albumin 4.1 g/dL (3.5-5.7); Albumin/Globulin Ratio 1.7 (1.1-2.2); Bilirubin,Indirect 0.3 mg/dL (0.0-1.0); Bilirubin,Total 0.3 mg/dL (0.3-1.0); Calcium 9.7 mg/dL (8.6-10.3); Globulin 2.4 g/dL (2.4-3.5); Potassium 4.6 mEq/L (3.5-5.1); Total Protein 6.5 g/dL (6.4-8.9)
[2019-08-25] MEDS ORDERED: Acetaminophen 325 MG TABLET PO PRN (15:45)
[2019-08-25] MEDS ORDERED: Mag Hydrox/Al Hydrox/Simeth 30 ML UDC PO PRN (15:45)
[2019-08-25] MEDS ORDERED: MOM Conc 10 ML UD.LIQ PO PRN (15:45)
[2019-08-25] MEDS ORDERED: Ondansetron 4 MG/2 ML VIAL IVP PRN (15:45)
[2019-08-25] MEDS ORDERED: Naloxone 0.4 MG/ML INJ IVP PRN (15:45)
[2019-08-25] MEDS ORDERED: *HR* Promethazine 25 MG/ML VIAL IVP PRN (15:45)
[2019-08-25] MEDS ORDERED: Nitroglycerin 0.4 MG TAB.SUBL SL PRN (15:48)
[2019-08-25] MEDS ORDERED: Dextrose Gel 15 GM/37.5 ML TUBE PO PRN ×2 (15:49)
[2019-08-25] MEDS ORDERED: *HR* Dextrose 50 % in Water (Syg) 50 ML SYRINGE IVP PRN (15:49)
[2019-08-25] MEDS ORDERED: D5% in Water 1,000 ML IVC PRN (15:49)
[2019-08-25] MEDS: Ipratropium/Albuterol Neb 3 ML IH SCH ×3 (16:27→23:45)
[2019-08-25] MEDS: Insulin LISPRO 300 UNITS/3 ML VIAL SQ SCH ×2 (19:41→20:56)
[2019-08-25] MEDS: Furosemide 20 MG/2 ML VIAL IVP SCH (20:57)
[2019-08-26 02:11] LABS: Basophils % 0.4 %; Eosinophils # 0.1 K/mcL (0.0-0.6); Eosinophils % 1.2 %; Hematocrit 33.9 % (35.3-44.9); Hemoglobin 11.1 g/dL (11.5-15.4); Immature Granulocytes % 0.4 % (0-4); Lymphocytes # 1.3 K/mcL (0.6-4.6); Lymphocytes % 23.6 %; Mean Corpuscular HGB Conc 32.7 g/dL (31.6-35.5); Mean Corpuscular Hemoglobin 28.4 pg (28.0-33.3); Mean Corpuscular Volume 86.7 fL (83.0-100.0); Mean Platelet Volume 10.2 fL (9.4-12.4); Monocytes # 0.4 K/mcL (0.0-1.3); Monocytes % 7.7 %; Neutrophils # 3.8 K/mcL (1.6-8.9); Platelet Count 157 K/mcL (140-400); Red Blood Count 3.91 M/mcL (3.82-4.97); Red Cell Distribution Width 12.6 % (11.5-14.5); Segmented Neutrophils % 66.7 %; White Blood Count 5.7 K/mcL (4.3-11.1)
[2019-08-26 02:31] LABS: Calcium 9.5 mg/dL (8.6-10.3); Potassium 3.7 mEq/L (3.5-5.1)
[2019-08-26 02:35] LABS: Troponin I 0.1 ng/mL (< 0.04)
[2019-08-26] MEDS: Ipratropium/Albuterol Neb 3 ML IH SCH ×3 (03:48→11:55)
[2019-08-26] MEDS: Furosemide 20 MG/2 ML VIAL IVP SCH ×2 (08:25→21:14)
[2019-08-26] MEDS: Insulin LISPRO 300 UNITS/3 ML VIAL SQ SCH ×4 (08:25→21:22)
[2019-08-26] MEDS ORDERED: Isosorbide MONOnitrate (24 HR) 30 MG TAB.ER.24H PO SCH (10:00)
[2019-08-26] MEDS ORDERED: lisinopriL 10 MG TABLET PO SCH (10:00)
[2019-08-26] MEDS: Apixaban 5 MG TABLET PO SCH ×2 (10:35→21:14)
[2019-08-26] MEDS ORDERED: *HR* Metoprolol 5 MG/5 ML VIAL IVP ONE (13:51)
[2019-08-26] MEDS ORDERED: Metoprolol XL (24 HR) Succ 25 MG TAB.ER.24H PO SCH (15:45)
[2019-08-26] MEDS: Ipratropium Neb 0.5 MG NEBULIZER IH SCH ×2 (15:54→21:55)
[2019-08-26] MEDS ORDERED: *HR* Metoprolol 5 MG/5 ML VIAL IVP PRN (21:57)
[2019-08-27 04:04] VITALS: BP 125/94
[2019-08-27] MEDS: Ipratropium Neb 0.5 MG NEBULIZER IH SCH (04:06)
[2019-08-27 06:38] LABS: Calcium 9.3 mg/dL (8.6-10.3); Potassium 4.1 mEq/L (3.5-5.1)
[2019-08-27] MEDS ORDERED: Metoprolol XL (24 HR) Succ 50 MG TAB.ER.24H PO SCH (09:00)
== END 2019-08-27 09:42 | disposition home or self-care (01) ==
LOC: EMEROOARM 12:07 → 3BNU 12:07
PROVIDERS: ADMIT Internal Medicine; ATTEND Internal Medicine

== ENCOUNTER 2019-09-01 05:58 | Observation (INO) ==
[2019-09-01] MEDS ORDERED: Ipratropium/Albuterol Neb 3 ML IH ONE (06:06)
[2019-09-01] MEDS ORDERED: methylPREDNISolone 125 MG/2 ML VIAL IVP ONE (06:06)
[2019-09-01 06:48] LABS: Basophils % 0.3 %; Eosinophils # 0.2 K/mcL (0.0-0.6); Hematocrit 38.4 % (35.3-44.9); Hemoglobin 12.6 g/dL (11.5-15.4); Immature Granulocytes % 0.4 % (0-4); Lymphocytes # 1.5 K/mcL (0.6-4.6); Lymphocytes % 10.4 %; Mean Corpuscular HGB Conc 32.8 g/dL (31.6-35.5); Mean Corpuscular Hemoglobin 29.1 pg (28.0-33.3); Mean Corpuscular Volume 88.7 fL (83.0-100.0); Mean Platelet Volume 10.4 fL (9.4-12.4); Monocytes # 0.6 K/mcL (0.0-1.3); Monocytes % 3.9 %; Neutrophils # 12.3 K/mcL (1.6-8.9); Platelet Count 193 K/mcL (140-400); Red Blood Count 4.33 M/mcL (3.82-4.97); Red Cell Distribution Width 12.6 % (11.5-14.5); White Blood Count 14.6 K/mcL (4.3-11.1)
[2019-09-01] MEDS ORDERED: Cefepime HCl 2,000 MG in Water for inj. (sterile) 20 ML IVP ONE (06:52)
[2019-09-01 07:08] LABS: Troponin I 0.06 ng/mL (< 0.04)
[2019-09-01] MEDS ORDERED: Furosemide 40 MG/4 ML VIAL IVP ONE (08:00)
[2019-09-01] MEDS ORDERED: Naloxone 0.4 MG/ML INJ IVP PRN (08:40)
[2019-09-01] MEDS ORDERED: Ondansetron 4 MG/2 ML VIAL IVP PRN (08:40)
[2019-09-01] MEDS ORDERED: *HR* Dextrose 50 % in Water (Syg) 50 ML SYRINGE IVP PRN (08:43)
[2019-09-01] MEDS ORDERED: D5% in Water 1,000 ML IVC PRN (08:43)
[2019-09-01] MEDS ORDERED: Ipratropium/Albuterol Neb 3 ML IH PRN (08:43)
[2019-09-01] MEDS ORDERED: Dextrose Gel 15 GM/37.5 ML TUBE PO PRN ×2 (08:43)
[2019-09-01] MEDS: Insulin LISPRO 300 UNITS/3 ML VIAL SQ SCH ×3 (14:25→20:36)
[2019-09-01] MEDS: Metoprolol XL (24 HR) Succ 50 MG TAB.ER.24H PO SCH (14:29)
[2019-09-01] MEDS: Apixaban 5 MG TABLET PO SCH ×2 (14:40→20:37)
[2019-09-01] MEDS: lisinopriL 20 MG TABLET PO SCH (14:41)
[2019-09-01] MEDS: Furosemide 40 MG/4 ML VIAL IVP SCH ×2 (15:07→20:35)
[2019-09-01] MEDS: Insulin DETEMIR 100 UNIT/ML X5UNITS SQ SCH (20:36)
[2019-09-01] MEDS ORDERED: Insulin LISPRO 300 UNITS/3 ML VIAL SQ SCH (21:00)
[2019-09-02 02:14] LABS: Basophils % 0.1 %; Hematocrit 33.8 % (35.3-44.9); Hemoglobin 11.2 g/dL (11.5-15.4); Immature Granulocytes % 0.5 % (0-4); Lymphocytes # 0.7 K/mcL (0.6-4.6); Mean Corpuscular HGB Conc 33.1 g/dL (31.6-35.5); Mean Corpuscular Hemoglobin 28.9 pg (28.0-33.3); Mean Corpuscular Volume 87.3 fL (83.0-100.0); Mean Platelet Volume 10.7 fL (9.4-12.4); Monocytes # 0.5 K/mcL (0.0-1.3); Monocytes % 5.4 %; Neutrophils # 7.3 K/mcL (1.6-8.9); Platelet Count 167 K/mcL (140-400); Red Blood Count 3.87 M/mcL (3.82-4.97); Red Cell Distribution Width 12.6 % (11.5-14.5); White Blood Count 8.5 K/mcL (4.3-11.1)
[2019-09-02 02:35] LABS: Calcium 9.5 mg/dL (8.6-10.3); Potassium 3.9 mEq/L (3.5-5.1)
[2019-09-02] MEDS ORDERED: Furosemide 40 MG/4 ML VIAL ONE (07:54)
[2019-09-02] MEDS ORDERED: Apixaban 5 MG TABLET ONE (07:54)
[2019-09-02] MEDS ORDERED: lisinopriL 20 MG TABLET ONE (07:54)
[2019-09-02] MEDS: Apixaban 5 MG TABLET PO SCH ×2 (16:34→21:21)
[2019-09-02] MEDS: Insulin LISPRO 300 UNITS/3 ML VIAL SQ SCH ×3 (16:34→21:22)
[2019-09-02] MEDS: Metoprolol XL (24 HR) Succ 50 MG TAB.ER.24H PO SCH (16:36)
[2019-09-02] MEDS: lisinopriL 20 MG TABLET PO SCH (16:36)
[2019-09-02] MEDS: Furosemide 40 MG/4 ML VIAL IVP SCH (16:36)
[2019-09-02] MEDS ORDERED: Furosemide 40 MG/4 ML VIAL IVP SCH (21:00)
[2019-09-02] MEDS: Insulin DETEMIR 100 UNIT/ML X5UNITS SQ SCH (21:22)
[2019-09-03 07:07] LABS: Basophils % 0.4 %; Eosinophils # 0.1 K/mcL (0.0-0.6); Eosinophils % 0.8 %; Hematocrit 37.5 % (35.3-44.9); Hemoglobin 12.3 g/dL (11.5-15.4); Immature Granulocytes % 0.4 % (0-4); Lymphocytes # 1.8 K/mcL (0.6-4.6); Lymphocytes % 22.9 %; Mean Corpuscular HGB Conc 32.8 g/dL (31.6-35.5); Mean Corpuscular Hemoglobin 28.5 pg (28.0-33.3); Mean Platelet Volume 10.6 fL (9.4-12.4); Monocytes # 0.5 K/mcL (0.0-1.3); Monocytes % 6.1 %; Neutrophils # 5.5 K/mcL (1.6-8.9); Platelet Count 170 K/mcL (140-400); Red Blood Count 4.31 M/mcL (3.82-4.97); Red Cell Distribution Width 12.6 % (11.5-14.5); Segmented Neutrophils % 69.4 %; White Blood Count 7.9 K/mcL (4.3-11.1)
[2019-09-03 07:19] LABS: Calcium 9.7 mg/dL (8.6-10.3); Potassium 3.5 mEq/L (3.5-5.1)
[2019-09-03 07:21] LABS: Magnesium 1.1 mg/dL (1.6-2.6)
[2019-09-03 07:23] LABS: Troponin I 0.14 ng/mL (< 0.04)
[2019-09-03] MEDS: Insulin LISPRO 300 UNITS/3 ML VIAL SQ SCH ×4 (08:23→21:47)
[2019-09-03] MEDS: Metoprolol XL (24 HR) Succ 50 MG TAB.ER.24H PO SCH (08:28)
[2019-09-03] MEDS: Apixaban 5 MG TABLET PO SCH ×2 (08:28→21:47)
[2019-09-03] MEDS: Insulin DETEMIR 100 UNIT/ML X5UNITS SQ SCH (21:47)
[2019-09-04 04:55] LABS: Hematocrit 39.2 % (35.3-44.9); Hemoglobin 12.6 g/dL (11.5-15.4); Mean Corpuscular HGB Conc 32.1 g/dL (31.6-35.5); Mean Corpuscular Hemoglobin 28.3 pg (28.0-33.3); Mean Corpuscular Volume 87.9 fL (83.0-100.0); Mean Platelet Volume 10.8 fL (9.4-12.4); Platelet Count 174 K/mcL (140-400); Red Blood Count 4.46 M/mcL (3.82-4.97); Red Cell Distribution Width 12.7 % (11.5-14.5); White Blood Count 6.8 K/mcL (4.3-11.1)
[2019-09-04 05:06] LABS: Calcium 9.4 mg/dL (8.6-10.3); Magnesium 1.8 mg/dL (1.6-2.6)
[2019-09-04] MEDS: Insulin LISPRO 300 UNITS/3 ML VIAL SQ SCH ×2 (09:40→12:04)
[2019-09-04] MEDS: Metoprolol XL (24 HR) Succ 50 MG TAB.ER.24H PO SCH (09:40)
[2019-09-04] MEDS: Apixaban 5 MG TABLET PO SCH (09:40)
[2019-09-04 11:08] VITALS: BP 131/76
== END 2019-09-04 15:31 | disposition home or self-care (01) ==
LOC: EMEROOARM 05:58 → 3BNU 05:58 → SUATTDRO 08:40 → 3BNU 12:58
PROVIDERS: ADMIT Internal Medicine; ATTEND Internal Medicine